=== PATIENT | male | born 1955 | race Caucasian/White ===

== ENCOUNTER 2019-10-31 02:03 | Inpatient (IN) | payer MEDICARE, MEDICAID ==
[2019-10-31 03:04] LABS: #Basophils 0.1 thou/uL (0.0-0.2); #Eosinphils 0.4 thou/uL (0.0-0.7); #Lymphocytes 1.7 thou/uL (1.20-3.40); #Monocytes 0.8 thou/uL (0.11-0.59); #Neutrophils 8.2 thou/uL (1.40-6.50); %Basophils 0.6 % (0.0-1.0); %Eosinophils 3.7 % (0.0-10.0); %Lymphocytes 14.9 % (21.0-51.0); %Neutrophils 73.8 % (42.0-75.0); Hemoglobin 10.5 g/dL (14.0-18.0); Mean Corpuscular HGB CONC 32.6 g/dL (32.0-36.0); Mean Corpuscular Hemoglobin 27.5 pg (27.0-31.0); Mean Corpuscular Volume 84.5 fL (78.0-98.0); Mean Platelet Volume 7.9 fL (7.4-10.4); Platelet Count 288 thou/uL (130-400); RBC Distribution Width 15.6 % (11.5-14.5); Red Blood Cell (RBC) Count 3.81 mill/uL (4.70-6.10); White Blood Cell (WBC) Count 11.1 thou/uL (4.8-10.8)
[2019-10-31 03:26] LABS: ALT (SGPT) 21 U/L (8-55); AST (SGOT) 19 U/L (5-34); Albumin 3.8 g/dL (3.4-4.8); Alkaline Phosphatase 78 U/L (40-110); Anion Gap 14 mmol/L (10-20); BUN (Urea Nitrogen) 30 mg/dL (8.4-25.7); Bilirubin, Total 1.1 mg/dL (0.2-1.2); Calc. Creatinine Clearance 0 mL/min (70-130); Calcium 9.7 mg/dL (7.8-10.44); Carbon Dioxide 18 mmol/L (23-31); Chloride 107 mmol/L (98-107); Estimated GFR-MDRD 24; Globulin 3.2 g/dL (2.4-3.5); Glucose 148 mg/dL (80-115); Potassium 4.2 mmol/L (3.5-5.1); Sodium 135 mmol/L (136-145)
[2019-10-31] MEDS ORDERED: cloNIDine 0.1 MG TAB ONE (03:38)
[2019-10-31] MEDS ORDERED: Aspirin Chewable 81 MG TAB ONE (03:38)
[2019-10-31] MEDS ORDERED: Furosemide 40 MG/4 ML VIAL ONE (03:56)
[2019-10-31] MEDS ORDERED: Ondansetron ODT 4 MG TAB PO PRN (04:16)
[2019-10-31] MEDS ORDERED: Ondansetron PF 4 MG/2 ML Vial IVP PRN (04:16)
[2019-10-31] MEDS ORDERED: HYDROcodone/Acetaminophen 5/325 mg Tablet PO PRN (04:16)
[2019-10-31] MEDS ORDERED: Acetaminophen 650 MG Suppository PR PRN (04:16)
--- NOTE | 2019-10-31 04:20 | PDOC.HHP ---
Hospitalist HPI - History of Present Illness sob History of Present Illness: Case of an 64y/o male with pmhx of bipolar disorder, cad, htn ckd dm and chf who comes to hospital due to sob. apparently patient was on his usual state of health until yesterday when he arrived at [place]. patient states the dyspnea was progressively getting worse for which he was brought here for evaluation. patient denies any chest pain palpitation or diaphoresis. does refers b/l leg edema dorie on orthopnea Hospitalist ROS - Review of Systems All other systems reviewed; all pertinent +/- noted in HPI/Subj - Exam General Appearance: NAD, awake alert Eye: PERRL, anicteric sclera ENT: normocephalic atraumatic, no oropharyngeal lesions Neck: supple, symmetric, no JVD Heart: RRR, no murmur Respiratory: no wheezes, no ronchi, normal chest expansion, rales Gastrointestinal: soft, non-tender, non-distended Extremities: no cyanosis, no clubbing, 2+ LE edema Skin: normal turgor, no lesions, no rashes Neurological: cranial nerve grossly intact, normal sensation to touch, no weakness Musculoskeletal: normal tone, normal strength, no muscle wasting Psychiatric: normal affect, normal behavior, A&O x 3 Hospitalist Results - Labs Result Diagrams: 10/31/19 02:30 10/31/19 02:30 Lab results: WBC 11.1 thou/uL (4.8-10.8) H 10/31/19 02:30 Hgb 10.5 g/dL (14.0-18.0) L 10/31/19 02:30 Hct 32.2 % (42.0-52.0) L 10/31/19 02:30 MCV 84.5 fL (78.0-98.0) 10/31/19 02:30 Plt Count 288 thou/uL (130-400) 10/31/19 02:30 Neutrophils % 73.8 % (42.0-75.0) 10/31/19 02:30 Sodium 135 mmol/L (136-145) L 10/31/19 02:30 Potassium 4.2 mmol/L (3.5-5.1) 10/31/19 02:30 Chloride 107 mmol/L (98-107) 10/31/19 02:30 Carbon Dioxide 18 mmol/L (23-31) L 10/31/19 02:30 BUN 30 mg/dL (8.4-25.7) H 10/31/19 02:30 Creatinine 2.66 mg/dL (0.7-1.3) H 10/31/19 02:30 Glucose 148 mg/dL (80-115) H 10/31/19 02:30 Calcium 9.7 mg/dL (7.8-10.44) 10/31/19 02:30 Total Bilirubin 1.1 mg/dL (0.2-1.2) 10/31/19 02:30 AST 19 U/L (5-34) 10/31/19 02:30 ALT 21 U/L (8-55) 10/31/19 02:30 Alkaline Phosphatase 78 U/L (40-110) 10/31/19 02:30 CK-MB (CK-2) 5.0 ng/mL (0-6.6) 10/31/19 02:30 Troponin I 0.229 ng/mL (< 0.028) H 10/31/19 02:30 B-Natriuretic Peptide 1777.9 pg/mL (0-100) H 10/31/19 02:30 Serum Total Protein 7.0 g/dL (5.8-8.1) 10/31/19 02:30 Albumin 3.8 g/dL (3.4-4.8) 10/31/19 02:30 - EKG Interpretation EKG: no ischemic st changes - Radiology Interpretation Chest x-ray Additional Comment: vascular congestion Hospitalist H&P A/P - Problem (1) Decompensated heart failure Code(s): I50.9 - HEART FAILURE, UNSPECIFIED Status: Acute (2) Hypertensive urgency Code(s): I16.0 - HYPERTENSIVE URGENCY Status: Acute (3) CAD (coronary artery disease) Code(s): I25.10 - ATHSCL HEART DISEASE OF [place] CORONARY ARTERY W/O ANG PCTRS Status: Acute (4) COPD (chronic obstructive pulmonary disease) Status: Acute (5) Diabetes Code(s): E11.9 - TYPE 2 DIABETES MELLITUS WITHOUT COMPLICATIONS Status: Acute (6) Acute kidney injury superimposed on CKD Code(s): N17.9 - ACUTE KIDNEY FAILURE, UNSPECIFIED; N18.9 - CHRONIC KIDNEY DISEASE, UNSPECIFIED Status: Acute (7) Elevated troponin Code(s): R79.89 - OTHER SPECIFIED ABNORMAL FINDINGS OF BLOOD CHEMISTRY Status : Acute - Plan Plan: 64y/o male with the stated pmhx who presents with dyspnea leg swelling orthopnea and PRASAD. elevated trop at 0.2, bnp 1770 cxr consistent with pulmonary edema d chf - lasix 40mg iv q 12 - 02 supplementation - beta xavi - 2d echo -unable to start salome due to kidney injury dionne over ckd - no recent hospitalization to compare - likely secondary to venous stasis in heart failure - starting iv diuresis - monitor creatinine values and u/o htn urgency - arrived w systolic b/p over 200, given lasix and clonidine at the ED, during my evaluation had improved systolic in the 160s - continue home meds, will monitor and adjust as necessary - likely overload component that should improve w lasix cad - continue asa and statin for secondary prevention - continue beta xavi copd - continue home tx - prn due nebs dm - ss and accu checks elevated troponin - no chest pain, likely nstemi type 2 in setting of heart failure - will get serial troponins to evaluate trend -continue cad medication
[2019-10-31] MEDS ORDERED: Dextrose 50% Abboject 50 ML SYRINGE SLOW IVP PRN (04:47)
[2019-10-31] MEDS ORDERED: Dextrose 5% in Water 1,000 ML IV PRN (04:47)
[2019-10-31] MEDS: Furosemide 40 MG/4 ML VIAL SLOW IVP SCH ×2 (05:21→16:28)
[2019-10-31 05:52] VITALS: BMI 34.0
[2019-10-31 06:08] LABS: Troponin I 0.223 ng/mL (< 0.028)
[2019-10-31] MEDS: HumaLOG 300 UNITS/3 ML VIAL SC PRN (06:22)
[2019-10-31] MEDS: Acetaminophen 325 MG TAB PO PRN ×3 (06:22→20:21)
[2019-10-31] MEDS: Ipratropium Bromide 2.5 ml Neb NEB SCH ×4 (07:08→23:37)
[2019-10-31] MEDS: Mometasone 200 MCG/Formoterol 5 MCG 120 PUFF INHALER INH SCH ×2 (07:10→18:46)
[2019-10-31] MEDS ORDERED: glipiZIDE 5 MG TAB PO SCH (08:24)
--- NOTE | 2019-10-31 08:43 | RAD ---
PORTABLE CHEST 1 VIEW: DATE: 10/31/2019. TIME: 2:29 AM. HISTORY: Difficulty breathing. COMPARISON: Comparison is made with the exam of 11/17/2013. FINDINGS/IMPRESSION: The heart size is borderline. There are mild patchy opacities in the lower lung hernandez bilaterally. No pneumothoraces or pleural effusions are seen. POS: IRWIN
[2019-10-31] MEDS ORDERED: NIFEdipine XL 60 MG TAB PO SCH (09:00)
[2019-10-31] MEDS: hydrALAZINE 25 MG TAB PO SCH ×2 (10:17→20:21)
[2019-10-31] MEDS: Tamsulosin HCl 0.4 MG CAP PO SCH (10:18)
[2019-10-31] MEDS: Aspirin Chewable 81 MG TAB PO SCH (10:18)
[2019-10-31] MEDS: Carvedilol 6.25 MG TAB PO SCH ×2 (10:18→20:21)
[2019-10-31] MEDS: Atorvastatin Calcium 10 MG TAB PO SCH (10:18)
[2019-10-31] MEDS: Enoxaparin Sodium 30 MG/0.3 ML SYRINGE SC SCH (10:19)
[2019-10-31 10:29] LABS: Troponin I 0.265 ng/mL (< 0.028)
--- NOTE | 2019-10-31 13:52 | PDOC.HOSPP ---
- Subjective Encounter Date: 10/31/19 Encounter Time: 09:45 Subjective: sob is better, is ambulating in hallway with cardiac rehab no chest pain or palp - Objective Vital Signs & Weight: Vital Signs (12 hours) Temp Pulse Pulse Pulse Resp BP BP 10/31/19 12:31 100 16 10/31/19 12:30 88 20 10/31/19 10:18 83 10/31/19 10:17 83 10/31/19 09:38 82 92 157/98 H 185/76 H 10/31/19 08:55 98.2 F 83 20 10/31/19 08:00 10/31/19 07:11 10/31/19 07:10 80 24 H 10/31/19 07:08 80 16 10/31/19 05:57 10/31/19 04:54 98.5 F 89 20 BP BP Pulse Ox Pulse Ox Pulse Ox 10/31/19 12:31 97 10/31/19 12:30 151/67 H 95 10/31/19 10:18 10/31/19 10:17 10/31/19 09:38 100 98 10/31/19 08:55 157/98 H 100 10/31/19 08:00 100 10/31/19 07:11 98 10/31/19 07:10 98 10/31/19 07:08 98 10/31/19 05:57 99 10/31/19 04:54 140/62 99 Weight Weight 211 lb 3.2 oz Result Diagrams: 10/31/19 02:30 10/31/19 02:30 Additional Labs: Accuchecks 10/31/19 10/31/19 10:34 05:42 POC Glucose 98 269 H Hospitalist ROS - Medication Medications: Active Medications Generic Name Dose Route Start Last Admin Trade Name Freq PRN Reason Stop Dose Admin Acetaminophen 650 mg 10/31/19 04:16 10/31/19 06:22 Tylenol PO 650 mg Q4H PRN Administration Headache/Fever/Mild Pain (1-3) Aspirin 81 mg 10/31/19 09:00 10/31/19 10:18 Aspirin Chewable PO 81 mg DAILY JIN Administration Atorvastatin Calcium 10 mg 10/31/19 09:00 10/31/19 10:18 Lipitor PO 10 mg DAILY JIN Administration Carvedilol 12.5 mg 10/31/19 09:00 10/31/19 10:18 Coreg PO 12.5 mg BID JIN Administration Enoxaparin Sodium 30 mg 10/31/19 09:00 10/31/19 10:19 Lovenox SC 30 mg 0900 JIN Administration Furosemide 40 mg 10/31/19 06:00 10/31/19 05:21 Lasix SLOW IVP 40 mg 0600,1400 JIN Administration Hydralazine HCl 50 mg 10/31/19 09:00 10/31/19 10:17 Apresoline PO 50 mg BID JIN Administration Insulin Human Lispro 0 units 10/31/19 04:47 10/31/19 06:22 Humalog SC 4 unit .MILD SLIDING SCALE PRN Administration Mild Correctional Scale Ipratropium [place] 2.5 ml 10/31/19 07:00 10/31/19 12:31 Atrovent NEB 2.5 ml [id number] JIN Administration Mometasone Furoate/Formoterol Fumar 2 puff 10/31/19 06:30 10/31/19 07:10 Dulera 200 Mcg/5 Mcg Inhaler INH 2 puff BID-RT JIN Administration Nifedipine 60 mg 10/31/19 09:00 10/31/19 10:18 Procardia Xl PO 60 mg DAILY JIN Administration Tamsulosin HCl 0.4 mg 10/31/19 09:00 10/31/19 10:18 Flomax PO 0.4 mg DAILY JIN Administration - Exam General Appearance: awake alert Eye: PERRL, anicteric sclera ENT: no oropharyngeal lesions, moist mucosa Neck: supple, no JVD Heart: RRR, no gallops Respiratory: no wheezes, rales Gastrointestinal: soft, non-tender, non-distended, normal bowel sounds Extremities: no cyanosis, 1+ LE edema Neurological: cranial nerve grossly intact, no focal deficits Hosp A/P (1) Acute exacerbation of CHF (congestive heart failure) Code(s): I50.9 - HEART FAILURE, UNSPECIFIED Status: Acute Qualifiers: Heart failure type: unspecified Qualified Code(s): I50.9 - Heart failure, unspecified (2) Acute kidney injury superimposed on CKD Code(s): N17.9 - ACUTE KIDNEY FAILURE, UNSPECIFIED; N18.9 - CHRONIC KIDNEY DISEASE, UNSPECIFIED Status: Acute (3) CAD (coronary artery disease) Code(s): I25.10 - ATHSCL HEART DISEASE OF [place] CORONARY ARTERY W/O ANG PCTRS Status: Chronic Qualifiers: Coronary Disease-Associated Artery/Lesion type: [place] artery [place] vs. transplanted heart: [place] heart Associated angina: without angina Qualified Code(s): I25.10 - Atherosclerotic heart disease of [place] coronary artery without angina pectoris (4) COPD (chronic obstructive pulmonary disease) Status: Chronic Qualifiers: COPD type: unspecified COPD Qualified Code(s): J44.9 - Chronic obstructive pulmonary disease, unspecified (5) Diabetes Code(s): E11.9 - TYPE 2 DIABETES MELLITUS WITHOUT COMPLICATIONS Status: Chronic Qualifiers: Diabetes mellitus type: type 2 Diabetes mellitus terminal operator insulin use: without fdc use Diabetes mellitus complication status: with kidney complications Diabetes mellitus complication detail: with chronic kidney disease Chronic kidney disease stage: stage 3 (moderate) Qualified Code(s): E11.22 - Type 2 diabetes mellitus with diabetic chronic kidney disease; N18.3 - Chronic kidney disease, stage 3 (moderate) - Plan is on lasix, coreg, procardia, asp, lipitor, glipizide. echo is pending, cardiology consultation, prior echo from 2013 shows severe LVH. hemostable will switch to oral lasix in am he will need help with a place to stay post discharge, likely medication help, [facility] set up locally says he moved from another place (?long term in [place])
--- NOTE | 2019-10-31 18:03 | CON ---
DATE OF CONSULTATION: REASON FOR CONSULTATION: Elevated troponin. PRIMARY DRYWALL TAPER: None. HISTORY OF PRESENT ILLNESS: Mr. Ahuja is an unfortunate 64-year-old gentleman, who states he is currently homeless. He states he was in a halfway in [place], [place]. He has underlying bipolar disorder. He states he was not happy with the person in charge and decided to come closer to his family in [place], although no current immediate family is present. His only brother he states recently . He has no family in the area. He states he began having shortness of breath en route, and the caregiver dropped him off in the emergency room. At this point, he has no other resource. He states he underwent 2 stents placed 1 month ago. The details to his hospitalization are unknown. He denies chest pain pressure. He states he is not feeling much better after relaxing and having a meal. PAST MEDICAL HISTORY: CAD, chronic kidney disease, diabetes mellitus, COPD, marked hypertension, and ischemic cardiomyopathy. ALLERGIES: NONE. REVIEW OF SYSTEMS: Ten-point review of systems is reviewed and as above, otherwise negative. CURRENT HOME MEDICATIONS: Include; 1. Hydralazine. 2. Spiriva. 3. Tamsulosin. 4. Nifedipine. 5. Coreg. 6. Symbicort. 7. Atorvastatin. 8. Metformin. 9. Lisinopril. 10. Lasix. 11. Famotidine. 12. Aspirin. 13. Acetaminophen. PHYSICAL EXAMINATION: GENERAL: He does appear much older stated age. He has very poor dentition with missing teeth present. VITAL SIGNS: Blood pressure 151/67, pulse 88, and respirations 20. NEUROLOGIC: The patient is alert and oriented x3 with no focal neurologic deficits. HEENT: Sclerae without icterus. Mouth has moist mucous membranes with normal pallor. NECK: No JVD. Carotid upstroke brisk. No bruits bilaterally. LUNGS: Clear to auscultation with unlabored respirations. BACK: No scoliosis or kyphosis. CARDIAC: Regular rate and rhythm with normal S1 and S2. No S3 or S4 noted. No significant rubs, murmurs, thrills, or gallops noted throughout the precordium. PMI is not displaced. There is no parasternal heave. ABDOMEN: Soft, nontender, nondistended. No peritoneal signs present. No hepatosplenomegaly. No abnormal striae. EXTREMITIES: 2+ femoral and 2+ dorsalis pedis pulses. No cyanosis, clubbing, or edema. SKIN: No gross abnormalities. IMAGING DATA: Echo Doppler shows LVEF 35% to 40% with akinesis of the inferior wall. PERTINENT LABORATORY DATA: Hemoglobin 10.5. Creatinine 2.6 with a GFR of 24. Peak troponin 0.2. IMPRESSION: 1. Shortness of breath. 2. Coronary artery disease. 3. ? stent placement. 4. Ischemic cardiomyopathy. RECOMMENDATIONS: Mr. Ahuja does have a previous history of cardiomyopathy per the patient. He states he had recent stent placement, although he is not on Plavix. We will add Plavix today and try and obtain records from [facility], where he states he underwent procedure. Otherwise, we will try and stabilize the patient. We will try on the diurese and we will need nephrology assistance. Continue Coreg. GLADIS inhibitor therapy and ARB in addition to Entresto are contraindicated due to elevated creatinine. At this point, based on his comorbidities, we would recommend continued conservative therapy. Job ID: [id number]
[2019-10-31] MEDS: Albuterol Sulfate 1.25 MG/3 ML NEB NEB SCH (18:30)
[2019-10-31] MEDS: Isosorbide Dinitrate 5 MG TAB PO SCH (20:20)
[2019-10-31 21:04] LABS: Bilirubin Negative (Negative); Blood, Urine Trace (Negative); Glucose, Urine (Dipstick) 100 mg/dL (Negative); Ketone, Urine Negative (Negative); Leukocyte Negative (Negative); Nitrite Negative (Negative); Protein, Urine (Dipstick) > or equal to 300 mg/dL (Neg-Trace); Urobilinogen 0.2 mg/dL (Less than 2)
[2019-10-31 21:10] LABS: Clarity Clear (Clear)
[2019-10-31 21:14] LABS: RBC/HPF 0-3 HPF (0-3); WBC/HPF None Seen HPF (0-3)
[2019-10-31 21:15] LABS: Bacteria/HPF Rare-Few HPF (None Seen); Squamous Epithelial 0-3 HPF (0-3)
[2019-10-31 21:16] LABS: Urine Culture Reflex No No
[2019-10-31 21:34] LABS: Creatinine, Urine 90.68 mg/dL (63-166)
[2019-10-31] MEDS ORDERED: Sodium Bicarbonate Tab 325 MG TAB PO SCH (23:00)
--- NOTE | 2019-11-01 00:12 | CON ---
DATE OF CONSULTATION: 10/31/2019 SERVICE: Nephrology. REASON FOR CONSULTATION: Elevated creatinine. REQUESTING PHYSICIAN: Dilip Shepherd MD HISTORY OF PRESENT ILLNESS: A 64-year-old male with known history of bipolar disorder, coronary artery disease, diabetes, and CHF, who presented to the hospital with worsening shortness of breath. The patient normally resides in [facility] area recently relocated down the side yesterday, but soon developed shortness of breath and was subsequently brought to the hospital. The patient also reported bilateral leg edema as well as orthopnea. He was subsequently found to have elevated troponin concerning for non-ST elevation myocardial infarction, hence the patient was admitted. The patient also was found to have elevated creatinine and he reported having chronic kidney disease, necessitating Nephrology consult. The patient reported having a chamber walker in the [facility] area, but he was unable to tell me the name of his regular chamber walker. Moreover, it seems that the patient has relocated over to this side of the city. He also complains of back pain, but denied hematuria, dysuria. The patient reported being out of his medications for several weeks. PAST MEDICAL HISTORY: 1. Coronary artery disease. 2. Chronic kidney disease. 3. Diabetes mellitus. 4. COPD. 5. Hypertension. 6. Ischemic cardiomyopathy. 7. Bipolar disorder. PAST SURGICAL HISTORY: Cardiac catheterization with stent placement. FAMILY HISTORY: Reviewed and noncontributory. The patient denied premature cardiac disease in relatives. SOCIAL HISTORY: The patient is homeless, used to live in a snf in [facility]. He had recently relocated to this area. It is unclear who patient is staying with or what can of long term he has. He is a former smoker that quit about 4 years ago. 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 ALLERGIES: NO KNOWN DRUG ALLERGIES REPORTED. MEDICATIONS: Prior to hospital medications; 1. Albuterol 1.25 mg nebulization b.i.d. 2. Allopurinol 100 mg p.o. daily. 3. Amlodipine 10 mg p.o. daily. 4. Aripiprazole 882 mg intramuscularly every 30 days. 5. Aspirin 81 mg p.o. daily. 6. Bumex 1 mg p.o. b.i.d. 7. Carvedilol 12.5 mg p.o. b.i.d. 8. Plavix 75 mg p.o. daily. 9. Pepcid 20 mg p.o. daily. 10. Finasteride 5 mg p.o. daily. 11. Fish oil 1000 mg p.o. daily. 12. Isosorbide dinitrate 100 mg p.o. t.i.d. 13. Omeprazole 20 mg p.o. daily. 14. Seroquel 400 mg p.o. daily at bedtime. 15. Renvela 800 mg t.i.d. with meals. 16. Flomax 0.4 mg p.o. daily. REVIEW OF SYSTEMS: The patient denied fever, dysuria, hematuria, change in weight. Other components of 12-point review of system performed was negative other than as documented here or in the history of present illness. PHYSICAL EXAMINATION: VITAL SIGNS: Temperature 98.7, pulse 90, respiratory rate 20, SpO2 of 96% on room air, blood pressure is 140/60. GENERAL: Obese male, in no obvious distress. Afebrile. Anicteric. Acyanotic. HEENT: Normocephalic, atraumatic. Poor dental status noted. NECK: No obvious JVD appreciated. CARDIOVASCULAR: Regular rhythm and rate. Normal heart sounds 1 and 2. RESPIRATORY: Fair air entry bilaterally with few crackles especially on the left side posteriorly at the base. No obvious rhonchi or use of accessory muscles appreciated. GASTROINTESTINAL: Obese, soft, nontender, nondistended with normal bowel sounds. MUSCULOSKELETAL: Moderate bilateral leg edema noted. No obvious rash or erythema appreciated. CENTRAL NERVOUS SYSTEM: Conscious and alert, oriented x3. Some memory lapse is noted. PSYCHIATRIC: The patient seems to be making a lot of plans. Affect seems to be normal. DIAGNOSTIC DATA: CBC earlier today showed WBC count of 11.1, hemoglobin of 10.5, MCV of 84.5, platelet of 288. Chemistry earlier today showed sodium 135, potassium 4.2, chloride 107, CO2 18, BUN 30, creatinine 2.66, glucose 148, calcium 9.7, total bilirubin 1.1, AST 19, ALT 21, alkaline phosphatase 78, total protein 7.0, albumin 3.8, globulin 3.2. Cardiac markers showed CK-MB 5.0, troponin 0.229. BNP is 1777.9. Chest x-ray performed on presentation showed a mild patchy opacities in the lower lung hernandez bilaterally, but no pneumothorax or pleural effusion are noted. Echocardiogram performed earlier today showed decreased systolic function with EF of 35-40. Akinetic motion of the inferior wall of the left ventricle noted. E-a flow reversal noted suggestive of diastolic dysfunction. Moderate to mitral regurgitation as well as moderate aortic regurgitation and mild to moderate tricuspid regurgitation noted. ASSESSMENT: 1. Elevated creatinine: It is either acute on chronic kidney dysfunction or chronic dysfunction. Patient is being out of his medication for several weeks into the point to cardiac decompensation with cardiorenal syndrome. 2. Chronic kidney disease of unknown baseline creatinine or EGFR. 3. Bilateral leg edema: Due to congestive heart failure with fluid overload. 4. Acute on chronic systolic and diastolic heart failure. 5. Diabetes. 6. Hypertension: The patient had markedly elevated blood pressure on presentation: This is most likely due to noncompliance. Blood pressure has improved. PLAN: 1. We will continue diuretics for now for acute on chronic systolic and diastolic heart failure. 2. We will get urinalysis as well as urine electrolytes and urine protein creatinine ratio. 3. We will monitor intake and output. 4. We will continue current antihypertensives to get adequate BP control. 5. We will start alkali therapy for metabolic acidosis. 6. We will get repeat BNP in the morning. 7. We will also plan on getting ultrasound of the kidneys to rule out obstructive uropathy as the patient is on Flomax and finasteride. 8. Further treatment to follow depending on hospital course. Many thanks for involving us in the care of this patient. We will follow along with you. Job ID: [id number]
[2019-11-01] MEDS: Acetaminophen 325 MG TAB PO PRN ×3 (00:33→14:01)
[2019-11-01] MEDS: Furosemide 40 MG/4 ML VIAL SLOW IVP SCH (05:24)
[2019-11-01] MEDS: HumaLOG 300 UNITS/3 ML VIAL SC PRN (06:03)
[2019-11-01] MEDS: Albuterol Sulfate 1.25 MG/3 ML NEB NEB SCH (06:58)
[2019-11-01] MEDS: Mometasone 200 MCG/Formoterol 5 MCG 120 PUFF INHALER INH SCH (06:59)
[2019-11-01] MEDS: Ipratropium Bromide 2.5 ml Neb NEB SCH ×2 (06:59→14:53)
[2019-11-01] MEDS ORDERED: glipiZIDE 5 MG TAB PO SCH (07:30)
[2019-11-01] MEDS: Sevelamer Carbonate 800 MG TAB PO SCH ×2 (07:56→13:58)
[2019-11-01] MEDS: Aspirin Chewable 81 MG TAB PO SCH (07:57)
[2019-11-01] MEDS: Carvedilol 6.25 MG TAB PO SCH (07:58)
[2019-11-01] MEDS: Atorvastatin Calcium 10 MG TAB PO SCH (07:58)
[2019-11-01] MEDS: Tamsulosin HCl 0.4 MG CAP PO SCH (08:00)
[2019-11-01] MEDS: hydrALAZINE 25 MG TAB PO SCH (08:00)
[2019-11-01] MEDS: Isosorbide Dinitrate 5 MG TAB PO SCH (08:00)
[2019-11-01] MEDS: Enoxaparin Sodium 30 MG/0.3 ML SYRINGE SC SCH (08:01)
[2019-11-01] MEDS ORDERED: Sodium Bicarbonate Tab 325 MG TAB PO SCH ×2 (09:00→21:00)
[2019-11-01] MEDS ORDERED: Fish Oil 1,000 MG CAP PO SCH (09:00)
[2019-11-01] MEDS ORDERED: Clopidogrel Bisulfate 75 MG TAB PO SCH (09:00)
[2019-11-01] MEDS ORDERED: Finasteride 5 MG TAB PO SCH (09:00)
[2019-11-01] MEDS ORDERED: Allopurinol 100 MG TAB PO SCH (09:00)
[2019-11-01 09:23] LABS: #Eosinphils 0.6 thou/uL (0.0-0.7); #Monocytes 0.6 thou/uL (0.11-0.59); #Neutrophils 5.8 thou/uL (1.40-6.50); %Basophils 0.4 % (0.0-1.0); %Eosinophils 6.4 % (0.0-10.0); %Lymphocytes 22.1 % (21.0-51.0); %Monocytes 6.7 % (0.0-10.0); %Neutrophils 64.3 % (42.0-75.0); Hemoglobin 9.2 g/dL (14.0-18.0); Mean Corpuscular HGB CONC 32.2 g/dL (32.0-36.0); Mean Corpuscular Volume 83.9 fL (78.0-98.0); Mean Platelet Volume 7.3 fL (7.4-10.4); Platelet Count 327 thou/uL (130-400); RBC Distribution Width 15.5 % (11.5-14.5); White Blood Cell (WBC) Count 9.1 thou/uL (4.8-10.8)
[2019-11-01 09:52] LABS: ALT (SGPT) 19 U/L (8-55); AST (SGOT) 18 U/L (5-34); Albumin 3.5 g/dL (3.4-4.8); Alkaline Phosphatase 67 U/L (40-110); Anion Gap 12 mmol/L (10-20); BUN (Urea Nitrogen) 44 mg/dL (8.4-25.7); Bilirubin, Total 0.5 mg/dL (0.2-1.2); Calc. Creatinine Clearance 32 mL/min (70-130); Calcium 8.9 mg/dL (7.8-10.44); Carbon Dioxide 25 mmol/L (23-31); Chloride 100 mmol/L (98-107); Estimated GFR-MDRD 19; Glucose 225 mg/dL (80-115); Potassium 4.5 mmol/L (3.5-5.1); Protein, Total 6.5 g/dL (5.8-8.1); Sodium 132 mmol/L (136-145)
--- NOTE | 2019-11-01 11:50 | ULT ---
Exam: Bilateral renal ultrasound HISTORY: Acute kidney insufficiency. Chronic kidney disease. COMPARISON: None FINDINGS: Right kidney: Renal cortical thinning. No hydronephrosis. Right kidney measurements: 9.2 x 4.2 x 5.2 cm. Left kidney: Renal cortical thinning. No hydronephrosis. 1.6 x 1.2 x 1.8 cm anechoic focus in the low er pole likely representing a cyst. Left kidney measurements 9.4 x 4.7 x 5.1 cm. Urinary bladder: Normal mucosa. Prevoid volume is 170 mL. IMPRESSION: No hydronephrosis.
--- NOTE | 2019-11-01 14:13 | PRG ---
DATE OF SERVICE: 11/01/2019 SERVICE: Nephrology. SUBJECTIVE: A 64-year-old male seen in followup for HAROLDO on CKD. The patient was admitted due to worsening shortness of breath and leg swelling, and was started on diuretics. Overnight, creatinine has increased further. The patient reported improvement in generalized condition and neck swelling. Denied nausea, vomiting, fever, chest pain, or cough. OBJECTIVE: VITAL SIGNS: Temperature 98.9, pulse 87, respiratory rate 16, SpO2 of 98% on room air, blood pressure is 138/64. I's and O's in the last 24 hours showed total intake of 700 with total output of 950. This seems to be inconclusive. GENERAL: Comfortable male patient, in no obvious distress. Afebrile. Anicteric. Acyanotic. HEENT: Normocephalic, atraumatic. Oral mucosa is moist. NECK: Supple with no JVD. CARDIOVASCULAR: Regular rhythm and rate. Normal heart sounds 1 and 2. RESPIRATORY: Fair air entry bilaterally with few bibasilar crackles or transmitted breath sounds. No obvious rhonchi or use of accessory muscles appreciated. GI: Obese, soft, nontender, nondistended with normal bowel sounds. EXTREMITIES: Mild bilateral leg edema noted. No erythema appreciated. CALL CENTER OPERATIONS MANAGER: Conscious and alert and oriented x3 with appropriate mental status. DIAGNOSTIC DATA: CMP showed sodium 132, potassium 4.5, chloride 100, CO2 of 25, BUN 44, creatinine 3.3, glucose 225, calcium 8.9, magnesium 2.0, total bilirubin 0.5, AST 18, ALT 19, alkaline phosphatase 67, total protein 6.5, albumin 3.5. CBC showed WBC count of 9.1, hemoglobin of 9.2, platelet of 327. Urinalysis yesterday showed yellow clear urine with pH of 5.0, specific gravity of 1.020, greater than or equal to 300 mg/dL of protein, negative ketone, trace blood, negative nitrite, bilirubin, and leukocyte esterase. Microscopy showed 0 to 3 RBC and none WBCs seen. Random urine protein was 228 mg/dL while urine creatinine was 90.68 and urine sodium 39 and urine urea nitrogen 380 with fractional excretion of urea of 36. ASSESSMENT: 1. Acute kidney injury: This is due to hemodynamic factors related to intravascular contraction as well as from aggressive diuretic therapy. Creatinine has gone up from 2.66 on admission to 3.30. BUN is also up from 30 on admission to 44. 2. Chronic kidney disease of unclear stage. Seems more like CKD stage 4. The patient already is on Renvela. 3. Hyponatremia: The patient had mild hyponatremia yesterday with 135 and currently 132. Most likely due to cardiac decompensation. 4. Acute on chronic systolic and diastolic heart failure. 5. Moderate mitral and aortic regurgitation. 6. Chronic bilateral leg edema: Most likely due to valvular heart disease as well as diastolic heart disease. Improved with diuretics. PLAN: 1. We will discontinue diuretics for now. 2. We will get a renal ultrasound to rule out obstruction as the patient is on BPH medication prior to presentation. 3. We will continue antihypertensives and adjust dose to get adequate BP control. 4. We will recheck renal function test in the morning. 5. Further treatment to follow depending on hospital course. Job ID: [id number]
--- NOTE | 2019-11-01 15:31 | PDOC.HOSPP ---
- Subjective Encounter Date: 11/01/19 Encounter Time: 10:00 Subjective: no sob or palp is amb in hallway responds well to verbal questions, ate his breakfast. - Objective Vital Signs & Weight: Vital Signs (12 hours) Temp Pulse Pulse Pulse Resp BP BP 11/01/19 10:39 87 89 115/57 L 11/01/19 08:00 87 138/64 11/01/19 07:58 138/64 11/01/19 07:50 98.9 F 87 16 11/01/19 06:58 87 16 BP BP Pulse Ox Pulse Ox Pulse Ox 11/01/19 10:39 124/56 L 97 97 11/01/19 08:00 98 11/01/19 07:58 11/01/19 07:50 138/64 98 11/01/19 06:58 97 Weight Weight 212 lb 3.2 oz I&O: 10/31/19 11/01/19 11/02/19 06:59 06:59 06:59 Intake Total 700 Output Total 950 Balance -250 Result Diagrams: 11/01/19 09:11 11/01/19 09:11 Additional Labs: Accuchecks 11/01/19 11/01/19 10/31/19 11:17 05:47 20:47 POC Glucose 130 H 154 H 211 H 10/31/19 16:13 POC Glucose 157 H Hospitalist ROS - Medication Medications: Active Medications Generic Name Dose Route Start Last Admin Trade Name Freq PRN Reason Stop Dose Admin Acetaminophen 650 mg 10/31/19 04:16 11/01/19 14:01 Tylenol PO 650 mg Q4H PRN Administration Headache/Fever/Mild Pain (1-3) Albuterol Sulfate 1.25 mg 10/31/19 18:30 11/01/19 06:58 Albuterol Sulfate NEB 1.25 mg BID-RT JIN Administration Allopurinol 100 mg 11/01/19 09:00 11/01/19 07:57 Zyloprim PO 100 mg DAILY JIN Administration Aspirin 81 mg 10/31/19 09:00 11/01/19 07:57 Aspirin Chewable PO 81 mg DAILY JIN Administration Atorvastatin Calcium 10 mg 10/31/19 09:00 11/01/19 07:58 Lipitor PO 10 mg DAILY JIN Administration Carvedilol 12.5 mg 10/31/19 09:00 11/01/19 07:58 Coreg PO 12.5 mg BID JNI Administration Clopidogrel Bisulfate 75 mg 11/01/19 09:00 11/01/19 07:58 Plavix PO 75 mg DAILY [facility] Administration Enoxaparin Sodium 30 mg 10/31/19 09:00 11/01/19 08:01 Lovenox SC Not Given 0900 JIN Finasteride 5 mg 11/01/19 09:00 11/01/19 08:02 Proscar PO Not Given DAILY [facility] Fish Oil 1,000 mg 11/01/19 09:00 11/01/19 07:59 Fish Oil PO 1,000 mg DAILY JIN Administration Glipizide 5 mg 11/01/19 07:30 11/01/19 07:56 Glucotrol PO 5 mg DAILY-AC [facility] Administration Hydralazine HCl 50 mg 10/31/19 09:00 11/01/19 08:00 Apresoline PO 50 mg BID [facility] Administration Insulin Human Lispro 0 units 10/31/19 04:47 11/01/19 06:03 Humalog SC 2 unit .MILD SLIDING SCALE PRN Administration Mild Correctional Scale Ipratropium [place] 2.5 ml 10/31/19 07:00 11/01/19 14:53 Atrovent NEB Not Given [id number] [facility] Isosorbide Dinitrate 10 mg 10/31/19 21:00 11/01/19 08:00 Isordil PO 10 mg TID [facility] Administration Mometasone Furoate/Formoterol Fumar 2 puff 10/31/19 06:30 11/01/19 06:59 Dulera 200 Mcg/5 Mcg Inhaler INH 2 puff BID-RT [facility] Administration Pantoprazole Sodium 40 mg 11/01/19 09:00 11/01/19 08:04 Protonix PO Not Given DAILY [facility] Quetiapine Fumarate 400 mg 10/31/19 21:00 10/31/19 20:23 Seroquel PO Not Given HS [facility] Sevelamer Carbonate 800 mg 11/01/19 08:00 11/01/19 13:58 Renvela PO 800 mg TID-WM [facility] Administration Tamsulosin HCl 0.4 mg 10/31/19 09:00 11/01/19 08:00 Flomax PO Not Given DAILY JIN - Exam General Appearance: awake alert Eye: PERRL, anicteric sclera ENT: no oropharyngeal lesions, moist mucosa Neck: supple, no JVD Heart: RRR, no murmur Respiratory: no wheezes, no rales Gastrointestinal: soft, non-tender, non-distended, normal bowel sounds Extremities: no cyanosis, no edema Neurological: cranial nerve grossly intact, no focal deficits Hosp A/P (1) Acute exacerbation of CHF (congestive heart failure) Code(s): I50.9 - HEART FAILURE, UNSPECIFIED Status: Acute Qualifiers: Heart failure type: combined systolic and diastolic Qualified Code(s): I50.43 - Acute on chronic combined systolic (congestive) and diastolic ( congestive) heart failure (2) Acute kidney injury superimposed on CKD Code(s): N17.9 - ACUTE KIDNEY FAILURE, UNSPECIFIED; N18.9 - CHRONIC KIDNEY DISEASE, UNSPECIFIED Status: Resolved (3) CAD (coronary artery disease) Code(s): I25.10 - ATHSCL HEART DISEASE OF [place] CORONARY ARTERY W/O ANG PCTRS Status: Chronic Qualifiers: Coronary Disease-Associated Artery/Lesion type: [place] artery [place] vs. transplanted heart: [place] heart Associated angina: without angina Qualified Code(s): I25.10 - Atherosclerotic heart disease of [place] coronary artery without angina pectoris (4) COPD (chronic obstructive pulmonary disease) Status: Chronic Qualifiers: COPD type: unspecified COPD Qualified Code(s): J44.9 - Chronic obstructive pulmonary disease, unspecified (5) Diabetes Code(s): E11.9 - TYPE 2 DIABETES MELLITUS WITHOUT COMPLICATIONS Status: Chronic Qualifiers: Diabetes mellitus type: type 2 Diabetes mellitus fdc insulin use: without director long term care use Diabetes mellitus complication status: with kidney complications Diabetes mellitus complication detail: with chronic kidney disease Chronic kidney disease stage: stage 3 (moderate) Qualified Code(s): E11.22 - Type 2 diabetes mellitus with diabetic chronic kidney disease; N18.3 - Chronic kidney disease, stage 3 (moderate) (6) Schizoaffective disorder Code(s): F25.9 - SCHIZOAFFECTIVE DISORDER, UNSPECIFIED Status: Chronic Qualifiers: Schizoaffective disorder type: unspecified Qualified Code(s): F25.9 - Schizoaffective disorder, unspecified - Plan is on lasix, coreg, procardia, asp, lipitor, glipizide. echo shows ef of 35% hemostable meds are being optimized he will need help with a place to stay post discharge, likely medication help, [facility] set up locally says he moved from another place (?prison in [place]) he has signed out against advice to find a place to stay, likely at the [place] , he is also trying to get into [facility] service here locally I will be happy to fax his medications once we know his pharmacy.
[2019-11-01 16:50] VITALS: BP 134/62; TEMP 98.7
--- NOTE | 2019-11-01 17:13 | PRG ---
DATE OF SERVICE: 11/01/2019 SUBJECTIVE: Mr. Ahuja is stable. No current complaints. OBJECTIVE: VITAL SIGNS: Blood pressure 124/56, pulse 87, temperature afebrile. LUNGS: Clear to auscultation. HEART: Irregularly irregular. ABDOMEN: Soft, nontender, and nondistended. EXTREMITIES: No edema. PERTINENT LABORATORY DATA: Hemoglobin 9.2. Creatinine 3.3. IMPRESSION: 1. Coronary artery disease. 2. Cardiomyopathy, likely ischemic. 3. Atrial fibrillation, likely paroxysmal. 4. Bipolar disorder. RECOMMENDATIONS: Mr. Ahuja likely has paroxysmal atrial fibrillation. I am unsure about his compliance with medical therapy. We would not feel comfortable proceeding with Coumadin. He states he is okay with taking Xarelto. He is rate controlled without symptoms. We would add Xarelto 20 mg p.o. q.a.m. There are no current symptoms suggesting angina. We will discontinue aspirin and continue carvedilol and Plavix. Change Lasix to p.o. and continue Isordil. Otherwise, I have no recommendations. Placement will be needed. Please re-consult if any further questions arise. Job ID: [id number]
[2019-11-01] MEDS ORDERED: Rivaroxaban 15 MG TAB PO SCH (21:00)
--- NOTE | 2019-11-02 04:52 | PQF ---
[employer] Crystal Reports Winform Viewer DAMIAN BEDOYA VINAYA KUMAR MD [id number] [address] [place] [address] [id number] CLINICAL DOCUMENTATION CLARIFICATION FORM: POST DISCHARGE Addendum to original discharge summary date: ____ Late entry note date: __ DATE: 11/02/19 ATTN: Dilip Shepherd Please exercise your independent, professional judgment in responding to the clarification form. Clinical indicators are provided on the bottom of this form for your review Can you please further clarify if NSTEMI type 2 is ruled in or ruled out? type 2 NSTEMI [ ] Ruled in diagnosis [ ] Continue to treat [ ] Resolved [ x ] Ruled out diagnosis [ ] Cannot rule out diagnosis [ ] Other diagnosis please specify [ ] Unable to determine For continuity of documentation, please document condition throughout progress notes and discharge summary. Thank You. CLINICAL INDICATORS - SIGNS / SYMPTOMS / LABS ED Provider pg.3- Hypertensive emergency, NSTEMI, Pulmonary edema H and P pg.2- BNP 1777.9H H and P pg.2- Chest X ray: vascular congestion H and P pg.4- elevated troponin, likely nstemi type 2 in the setting of heart failure Consult Dr. Coreas pg.1- found to have elevated troponin concerning for Non-ST elevation myocardial infarction Laboratory- Troponin 0.229Hm 0.223H, 0.265H EKG 10/[address] segment normal, T wave normal Vital Signs 10/30: Temp=98.5 Ajcne=617 KW=538/67 Respi=24 Labs CK-MB: 10/30=5.0 RISK FACTORS CAD- H and P pg.1 HTN- H and P pg.1 CKD- H and P pg.1 CHF- H and P pg.1 64 years old- H and P pg.1 Ischemic cardiomyopathy- Cardiology Consult pg.1 COPD- Cardiology Consult pg.1 DM ED Notes 10/30 PN 10/31 Mitral and aortic regurgitation Paroxysmal Afib PN 10/31 Consult 10/30 Obesity TREATMENTS Chest X ray 10/30 Echocardiogram 10/[address] Orellana Troponin Monitoring- Laboratory Aspirin 81mg PO- MAR Furosemide 40 mg IV- MAR IV Fluids- JUN EKG ED Notes 10/30 (This form is maintained as a part of the permanent medical record) 2014 [email or web address]. All Rights Reserved [email or web address]
--- NOTE | 2019-11-02 17:47 | DIS ---
DATE OF ADMISSION: 10/31/2019 DATE OF DISCHARGE: 11/01/2019 [id number] DISPOSITION: The patient signed out against medical advice. PRIMARY DISCHARGE DIAGNOSES: Acute on chronic congestive heart failure exacerbation with systolic dysfunction with ejection fraction of 35%, class C; acute kidney injury on top of chronic kidney disease, stage 3 likely; coronary artery disease ; chronic obstructive pulmonary disease; diabetes mellitus, type 2; schizoaffective disorder. PROCEDURES DONE DURING HOSPITALIZATION: Chest x-ray done showed cardiomegaly with pulmonary vascular congestion. Echo with 2D Doppler done showed ejection fraction of 35% to 40%. Inferior wall was akinetic. There was diastolic dysfunction, moderate mitral regurgitation, and moderate aortic regurgitation. Ultrasound of the kidneys showed no hydronephrosis. He had a white count of 9, H and H of 9 and 28, platelet count 327, MCV 83. Discharge BUN and creatinine are 44 and 3.3. Serum bicarb was 25. Albumin 3.5. Admitting BUN and creatinine were 30 and 2.6. BNP 1777. DISCHARGE MEDICATIONS: Please note the patient did not inform us of his pharmacy prior to signing out against advice. I have informed the staff on telemetry to fax the following medications if he calls us with the name of his pharmacy. He will need, 1. Bumex 1 mg at 9 a.m. and 2 p.m. 2. Lipitor 10 mg daily. 3. Aspirin 81 mg daily. 4. Allopurinol 100 mg daily. 5. Aripiprazole 882 mg intramuscular once every 30 days for schizophrenia. 6. Albuterol nebulizer twice daily. 7. Carvedilol 12.5 mg twice daily. 8. Plavix 75 mg daily. 9. Proscar 5 mg daily. 10. Fish oil 1000 mg daily. 11. Glipizide 5 mg daily. 12. Hydralazine 50 mg twice daily. 13. Isordil 10 mg twice daily. 14. Omeprazole 20 mg daily. 15. Seroquel 400 mg p.o. at bedtime. 16. Sevelamer 800 mg 3 times daily. 17. Sodium bicarbonate 650 mg twice daily. 18. Flomax 0.4 mg daily. ALLERGIES: NO KNOWN DRUG ALLERGIES. DISCHARGE PLAN: Please note, the patient signed out against medical advice and we are not sure who his primary care physician will be in the local area. He moved from [facility]. He is trying to establish with [facility] here and a primary care physician locally as well. INPATIENT CONSULTATIONS: Dr. Orellana for Cardiology and Dr. Coreas for Nephrology BRIEF COURSE DURING HOSPITALIZATION: The patient initially came in with complaints of shortness of breath. This got progressively worse from last 24 hours and the patient was admitted for CHF exacerbation. He had elevated BUN and creatinine as well as likely might have underlying CKD. He is new to the hospital. He was living in [facility]. He also has underlying schizoaffective disorder. The patient' s echo revealed ejection fraction of 35% to 40%. Ultrasound of the kidneys did not reveal any hydronephrosis. The patient was gently diuresed during his stay here. He has had consultation with Dr. Orellana for Cardiology and Dr. Coreas for Nephrology. On 11/02/2019, the patient suddenly left against medical advice saying that he has to find a place at the local [place] before it closes at 4 p.m. and also to seek [facility] local services. He was clearly aware that his renal function is getting worse along with cardiac complications as well as his medications were being optimized. He is a high risk for readmission. Please see a [id number] documentation for the day of discharge on [place]. Job ID: [id number] [facility]
== END 2019-11-01 15:05 | disposition left against medical advice (07) | DRG 291 ==
LOC: ERS 02:03 → 2NO 04:10 → OBSVTOIN 04:10
PROVIDERS: ADMIT Internal Medicine; ATTEND Internal Medicine
DX: I13.0 Hypertensive heart and chronic kidney disease with heart failure and stage 1 through stage 4 chronic kidney disease, or unspecified chronic kidney disease (principal); I50.43 Acute on chronic combined systolic (congestive) and diastolic (congestive) heart failure; N17.9 Acute kidney failure, unspecified; N18.4 Chronic kidney disease, stage 4 (severe); E87.1 Hypo-osmolality and hyponatremia; F31.9 Bipolar disorder, unspecified; J43.9 Emphysema, unspecified; E11.22 Type 2 diabetes mellitus with diabetic chronic kidney disease; I25.10 Atherosclerotic heart disease of native coronary artery without angina pectoris; I16.0 Hypertensive urgency; I48.0 Paroxysmal atrial fibrillation; I25.5 Ischemic cardiomyopathy; F25.9 Schizoaffective disorder, unspecified; I25.2 Old myocardial infarction; Z95.5 Presence of coronary angioplasty implant and graft; Z79.899 Other long term (current) drug therapy; Z79.51 Long term (current) use of inhaled steroids; Z79.82 Long term (current) use of aspirin; Z91.14 Patient's other noncompliance with medication regimen; Z53.29 Procedure and treatment not carried out because of patient's decision for other reasons
CPT/HCPCS: 36415; 36416; 71045; 76770; 80053; 81001; 82553; 82570; 83735; 83880; 84156; 84300; 84443; 84484; 84540; 85025; 93005; 93306; 93798; 94640; 96374; J1650; J1940; J7620

== ENCOUNTER 2019-11-04 23:22 | Inpatient (IN) | payer MEDICARE, MEDICAID ==
[2019-11-05] MEDS ORDERED: Ketorolac Tromethamine 30 MG/ML VIAL ONE (00:09)
[2019-11-05 00:35] LABS: #Eosinphils 0.1 thou/uL (0.0-0.7); #Lymphocytes 1.7 thou/uL (1.20-3.40); #Monocytes 0.6 thou/uL (0.11-0.59); %Basophils 0.4 % (0.0-1.0); %Eosinophils 1.4 % (0.0-10.0); %Lymphocytes 16.2 % (21.0-51.0); %Monocytes 5.6 % (0.0-10.0); %Neutrophils 76.3 % (42.0-75.0); Mean Corpuscular HGB CONC 32.9 g/dL (32.0-36.0); Mean Corpuscular Hemoglobin 27.8 pg (27.0-31.0); Mean Corpuscular Volume 84.6 fL (78.0-98.0); Mean Platelet Volume 7.1 fL (7.4-10.4); Platelet Count 305 thou/uL (130-400); RBC Distribution Width 15.7 % (11.5-14.5); Red Blood Cell (RBC) Count 3.23 mill/uL (4.70-6.10); White Blood Cell (WBC) Count 10.5 thou/uL (4.8-10.8)
[2019-11-05 00:44] LABS: ALT (SGPT) 20 U/L (8-55); AST (SGOT) 17 U/L (5-34); Albumin 3.6 g/dL (3.4-4.8); Alkaline Phosphatase 72 U/L (40-110); Anion Gap 12 mmol/L (10-20); BUN (Urea Nitrogen) 34 mg/dL (8.4-25.7); Calc. Creatinine Clearance 0 mL/min (70-130); Calcium 9.3 mg/dL (7.8-10.44); Carbon Dioxide 22 mmol/L (23-31); Chloride 106 mmol/L (98-107); Estimated GFR-MDRD 24; Globulin 3.1 g/dL (2.4-3.5); Glucose 131 mg/dL (80-115); Potassium 4.3 mmol/L (3.5-5.1); Protein, Total 6.7 g/dL (5.8-8.1); Sodium 136 mmol/L (136-145)
[2019-11-05] MEDS ORDERED: cloNIDine 0.1 MG TAB ONE (00:56)
[2019-11-05] MEDS ORDERED: Furosemide 40 MG/4 ML VIAL ONE (01:11)
[2019-11-05] MEDS ORDERED: Nitroglycerin 2% Ointment 1 INCH/1 GM Packet ONE (01:11)
[2019-11-05 01:21] LABS: CKMB 3.5 ng/mL (0-6.6)
[2019-11-05] MEDS ORDERED: Acetaminophen 500 MG TAB ONE (01:41)
[2019-11-05] MEDS ORDERED: Dextrose 5% in Water 1,000 ML IV PRN (03:12)
[2019-11-05] MEDS ORDERED: Dextrose 50% Abboject 50 ML SYRINGE SLOW IVP PRN (03:12)
--- NOTE | 2019-11-05 03:42 | HP ---
REASON FOR ADMISSION: Shortness of breath. HISTORY OF PRESENT ILLNESS: This is a 64-year-old male patient, who was in our hospital and left against medical advice approximately three days ago, although the hospitalist, who was seeing him, did call the Pharmacy and sent a prescription for his cardiac medications. The patient did not take any of those medication. He comes back today reporting recurrence of his shortness of breath and neck pain. The patient was admitted previously for CHF exacerbation. The patient denies any chest pain. No fevers. No chills. No cough. No sputum production. I did review his records and the patient was admitted on October 30 with shortness of breath, diagnosed with acute on chronic congestive heart failure exacerbation. His EF was found to be 35%. He was noted to have stage 3 kidney disease. His ultrasound of the kidneys did not show any hydronephrosis. He was gently diuresed, Cardiology was consulted, at some point, the patient decided to leave AMA. The patient returns and tells me that he is short of breath and does not want to . PAST MEDICAL HISTORY: 1. Bipolar disorder. 2. Coronary artery disease. 3. High blood pressure. 4. Chronic kidney disease, stage 3. 5. Diabetes type 2. 6. CHF. SOCIAL HISTORY: Does not smoke. Does not drink alcohol. FAMILY HISTORY: Negative for heart disease. REVIEW OF SYSTEMS: All systems reviewed except the above-mentioned shortness of breath, found to be negative. PHYSICAL EXAMINATION: GENERAL: He is awake, alert, and oriented, does not appear in distress. VITAL SIGNS: His blood pressure is 190/108, heart rate of 110, saturating 94% room air, and temperature is 98.9. HEENT: Head is nontraumatic and normocephalic. Pupils are equal, reactive. Extraocular movements are intact. Nonicteric sclerae. Well injected conjunctivae. Oral mucosa normal. Nasal mucosa normal. NECK: Supple. No adenopathy. No murmur. Thyroid is not palpable. Trachea is midline. No supraclavicular adenopathy. HEART: S1 and S2. Regular. No murmur. No gallop. No friction rubs. No displacement of PMI. LUNGS: Decreased air entry bilaterally. Inspiratory crackles bilateral bases. ABDOMEN: Bowel sounds are positive. Nontender abdomen. No hepatomegaly. EXTREMITIES: No lower extremity edema. No cyanosis. NEUROLOGIC: Cranial nerves 2 through 12 within normal limits. Normal motor function. Normal sensory function. Normal reflexes. LABORATORY DATA: Blood work shows WBC of 10.5, hemoglobin 9, which is around his baseline, and platelets of 305. Sodium 136, potassium 4.3, and creatinine of 2.73, previous creatinine 3.3. Troponin of 0.610, previous troponin 0.265 and BNP of 3097, previous BNP was 1777. Chest x-ray shows no acute disease, no major changes compared to previous chest x-ray done on the 30 of October. EKG shows sinus tachycardia, nonspecific interventricular conduction delay. ASSESSMENT AND PLAN: This is a 64-year-old male patient, who is presenting with uncontrolled blood pressure, also worsening of his congestive heart failure secondary to noncompliance with medication. He was in our hospital with similar presentation and left against medical advise. He does have history of psychiatric illness. Cardiac. The patient will be admitted to telemetry under observation. We will continue cycling his cardiac enzymes and we will diurese him with IV Lasix. We will provide him with blood pressure control by restarting his home medications, also adding hydralazine IV on as needed basis. Renal system, electrolytes. The patient does have chronic kidney disease. We will continue to monitor his kidney function since he will be diuresed. In regard to his diabetes, he will be on insulin sliding scale. For deep venous thrombosis prophylaxis, he will be on heparin subcutaneously. I am awaiting for his med rec to be done, so I could reconcile his medications. Most likely, we will resume his home medications. I did discuss with him his code status and he wishes to be a full code. Job ID: [id number]
[2019-11-05 04:35] LABS: #Eosinphils 0.2 thou/uL (0.0-0.7); #Lymphocytes 2.2 thou/uL (1.20-3.40); #Monocytes 0.6 thou/uL (0.11-0.59); #Neutrophils 6.3 thou/uL (1.40-6.50); %Basophils 0.4 % (0.0-1.0); %Eosinophils 2.6 % (0.0-10.0); %Lymphocytes 23.3 % (21.0-51.0); %Monocytes 6.7 % (0.0-10.0); Hemoglobin 8.8 g/dL (14.0-18.0); Mean Corpuscular HGB CONC 31.4 g/dL (32.0-36.0); Mean Corpuscular Volume 85.9 fL (78.0-98.0); Mean Platelet Volume 7.4 fL (7.4-10.4); Platelet Count 288 thou/uL (130-400); RBC Distribution Width 15.7 % (11.5-14.5); Red Blood Cell (RBC) Count 3.24 mill/uL (4.70-6.10); White Blood Cell (WBC) Count 9.4 thou/uL (4.8-10.8)
[2019-11-05] MEDS: hydrALAZINE 20 MG/ML VIAL SLOW IVP PRN ×2 (04:53→23:55)
[2019-11-05 05:00] LABS: Anion Gap 16 mmol/L (10-20); BUN (Urea Nitrogen) 36 mg/dL (8.4-25.7); Calc. Creatinine Clearance 0 mL/min (70-130); Calcium 9.2 mg/dL (7.8-10.44); Carbon Dioxide 18 mmol/L (23-31); Chloride 104 mmol/L (98-107); Estimated GFR-MDRD 23; Glucose 134 mg/dL (80-115); Potassium 4.1 mmol/L (3.5-5.1); Sodium 134 mmol/L (136-145)
[2019-11-05 05:03] LABS: Troponin I 0.691 ng/mL (< 0.028)
[2019-11-05] MEDS ORDERED: ARIPIPRAZOLE LAUROXIL 882 MG IM SCH (05:15)
[2019-11-05 06:45] LABS: Critical Call Chem Troponin I RESULT DECREASING; Troponin I 0.519 ng/mL (< 0.028)
--- NOTE | 2019-11-05 08:07 | RAD ---
PORTABLE CHEST: Date: 11/04/2019 PROVIDED CLINICAL HISTORY: Dyspnea. FINDINGS: Comparison with 10/31/2019 Cardiac and mediastinal silhouette is unchanged in appearance. Appearance of the lung parenchyma is n ot significantly changed with respect to prior. There is no pleural fluid or pneumothorax apparent. IMPRESSION: Stable radiographic appearance of the chest without definite evidence for an acute cardiopulmonary pr ocess. POS: HARRIET
[2019-11-05] MEDS: Atorvastatin Calcium 10 MG TAB PO SCH (08:29)
[2019-11-05] MEDS: Sodium Bicarbonate Tab 325 MG TAB PO SCH ×2 (08:29→20:29)
[2019-11-05] MEDS: hydrALAZINE 25 MG TAB PO SCH ×2 (08:29→20:30)
[2019-11-05] MEDS: Fish Oil 1,000 MG CAP PO SCH (08:29)
[2019-11-05] MEDS: Clopidogrel Bisulfate 75 MG TAB PO SCH (08:29)
[2019-11-05] MEDS: Isosorbide Dinitrate 20 MG TAB PO SCH ×2 (08:29→20:30)
[2019-11-05] MEDS: glipiZIDE 5 MG TAB PO SCH (08:29)
[2019-11-05] MEDS: Sevelamer Carbonate 800 MG TAB PO SCH ×3 (08:29→17:57)
[2019-11-05] MEDS: Aspirin Chewable 81 MG TAB PO SCH (08:29)
[2019-11-05] MEDS: Allopurinol 100 MG TAB PO SCH (08:30)
[2019-11-05] MEDS: Tamsulosin HCl 0.4 MG CAP PO SCH (08:30)
[2019-11-05] MEDS: Heparin 5,000 UNITS/ML VIAL SC SCH ×3 (08:30→20:29)
[2019-11-05] MEDS: Acetaminophen 325 MG TAB PO PRN ×3 (08:30→20:30)
[2019-11-05] MEDS: Finasteride 5 MG TAB PO SCH (08:30)
[2019-11-05] MEDS: Carvedilol 6.25 MG TAB PO SCH ×2 (08:30→20:31)
[2019-11-05] MEDS: Furosemide 40 MG/4 ML VIAL SLOW IVP SCH ×2 (08:30→20:31)
[2019-11-05] MEDS ORDERED: Albuterol Sulfate 1.25 MG/3 ML NEB NEB SCH (09:00)
[2019-11-05] MEDS ORDERED: Bumetanide 1 MG TAB PO SCH (09:00)
[2019-11-05] MEDS: Albuterol Sulfate 1.25 MG/3 ML NEB NEB SCH (19:09)
[2019-11-06] MEDS: Albuterol Sulfate 1.25 MG/3 ML NEB NEB SCH ×2 (07:17→18:56)
[2019-11-06] MEDS: Carvedilol 6.25 MG TAB PO SCH ×2 (08:05→22:08)
[2019-11-06] MEDS: Sevelamer Carbonate 800 MG TAB PO SCH ×3 (08:05→16:35)
[2019-11-06] MEDS: Atorvastatin Calcium 10 MG TAB PO SCH (08:05)
[2019-11-06] MEDS: Allopurinol 100 MG TAB PO SCH (08:05)
[2019-11-06] MEDS: Sodium Bicarbonate Tab 325 MG TAB PO SCH ×2 (08:05→22:08)
[2019-11-06] MEDS: Clopidogrel Bisulfate 75 MG TAB PO SCH (08:05)
[2019-11-06] MEDS: Isosorbide Dinitrate 20 MG TAB PO SCH ×2 (08:06→22:09)
[2019-11-06] MEDS: glipiZIDE 5 MG TAB PO SCH (08:06)
[2019-11-06] MEDS: hydrALAZINE 25 MG TAB PO SCH ×2 (08:06→22:09)
[2019-11-06] MEDS: Tamsulosin HCl 0.4 MG CAP PO SCH (08:06)
[2019-11-06] MEDS: Finasteride 5 MG TAB PO SCH (08:06)
[2019-11-06] MEDS: Fish Oil 1,000 MG CAP PO SCH (08:06)
[2019-11-06] MEDS: Furosemide 40 MG/4 ML VIAL SLOW IVP SCH ×2 (08:06→22:08)
[2019-11-06] MEDS: Heparin 5,000 UNITS/ML VIAL SC SCH ×3 (08:06→22:08)
[2019-11-06] MEDS: Aspirin Chewable 81 MG TAB PO SCH (08:06)
[2019-11-06] MEDS: Acetaminophen 325 MG TAB PO PRN ×2 (08:07→23:34)
[2019-11-06] MEDS: HumaLOG 300 UNITS/3 ML VIAL SC PRN (12:28)
--- NOTE | 2019-11-06 20:18 | PDOC.HOSPP ---
- Subjective Encounter Date: 11/06/19 Encounter Time: 09:00 Subjective: no overnight events. this morning, feeling well and has no complaints with exception of dyspnea on exertion that is improving. Continues to have delusions of grandeur and visual hallucinations. Homeless, medical care limited by psychiatric comorbidities. Cannot care for self. Pending [facility] evaluation - Objective Vital Signs & Weight: Vital Signs (12 hours) Temp Pulse Resp BP BP Pulse Ox 11/06/19 18:56 79 16 11/06/19 16:00 78 159/70 H 11/06/19 11:43 97.4 F L 82 18 172/77 H 94 L Weight Weight 217 lb 6.4 oz I&O: 11/05/19 11/06/19 11/07/19 06:59 06:59 06:59 Intake Total 100 120 650 Output Total 0 550 1200 Balance 100 -430 -550 Result Diagrams: 11/05/19 04:10 11/05/19 04:10 Additional Labs: Accuchecks 11/06/19 11/06/19 11/06/19 16:16 10:20 05:51 POC Glucose 84 284 H 138 H 11/05/19 20:44 POC Glucose 167 H Hospitalist ROS - Review of Systems Constitutional: denies: fever, chills, sweats Respiratory: reports: SOB with excertion. denies: cough, dry, shortness of breath, pleuritic pain, sputum, wheezing Cardiovascular: reports: edema. denies: chest pain, palpitations, orthopnea, paroxysmal noc. dyspnea Gastrointestinal: denies: nausea, vomiting, abdominal pain, diarrhea - Medication Medications: Active Medications Generic Name Dose Route Start Last Admin Trade Name Freq PRN Reason Stop Dose Admin Acetaminophen 650 mg 11/05/19 07:50 11/06/19 08:07 Tylenol PO 650 mg Q6H PRN Administration Mild Pain (1-3) Albuterol Sulfate 1.25 mg 11/05/19 18:30 11/06/19 18:56 Albuterol Sulfate NEB 1.25 mg BID-RT JIN Administration Allopurinol 100 mg 11/05/19 09:00 11/06/19 08:05 Zyloprim PO 100 mg DAILY JIN Administration Aspirin 81 mg 11/05/19 09:00 11/06/19 08:06 Aspirin Chewable PO 81 mg DAILY JIN Administration Atorvastatin Calcium 10 mg 11/05/19 09:00 11/06/19 08:05 Lipitor PO 10 mg DAILY JIN Administration Carvedilol 12.5 mg 11/05/19 09:00 11/06/19 08:05 Coreg PO 12.5 mg BID JIN Administration Clopidogrel Bisulfate 75 mg 11/05/19 09:00 11/06/19 08:05 Plavix PO 75 mg DAILY JIN Administration Finasteride 5 mg 11/05/19 09:00 11/06/19 08:06 Proscar PO 5 mg DAILY JIN Administration Fish Oil 1,000 mg 11/05/19 09:00 11/06/19 08:06 Fish Oil PO 1,000 mg DAILY JIN Administration Furosemide 40 mg 11/05/19 09:00 11/06/19 08:06 Lasix SLOW IVP 40 mg BID JIN Administration Glipizide 5 mg 11/05/19 07:30 11/06/19 08:06 Glucotrol PO 5 mg DAILY-AC JIN Administration Heparin Sodium (Porcine) 5,000 units 11/05/19 09:00 11/06/19 15:29 Heparin SC 5,000 units TID JIN Administration Hydralazine HCl 10 mg 11/05/19 03:11 11/05/19 23:55 Apresoline SLOW IVP 10 mg Q4H PRN Administration SBP > 140 Hydralazine HCl 50 mg 11/05/19 09:00 11/06/19 08:06 Apresoline PO 50 mg BID JIN Administration Insulin Human Lispro 0 units 11/05/19 03:12 11/06/19 12:28 Humalog SC 6 unit .MODERATE SLIDING SC PRN Administration Moderate Correctional Scale Isosorbide Dinitrate 10 mg 11/05/19 09:00 11/06/19 08:06 Isordil PO 10 mg BID JIN Administration Pantoprazole Sodium 40 mg 11/05/19 09:00 11/06/19 08:06 Protonix PO 40 mg DAILY JIN Administration Quetiapine Fumarate 400 mg 11/05/19 21:00 11/05/19 20:29 Seroquel PO 400 mg HS JIN Administration Sevelamer Carbonate 800 mg 11/05/19 08:00 11/06/19 16:35 Renvela PO 800 mg TID-WM JIN Administration Sodium Bicarbonate 650 mg 11/05/19 09:00 11/06/19 08:05 Bicarbonate, Sodium PO 650 mg BID JIN Administration Tamsulosin HCl 0.4 mg 11/05/19 09:00 11/06/19 08:06 Flomax PO 0.4 mg DAILY JIN Administration - Exam General Appearance: NAD, awake alert ENT: normocephalic atraumatic, moist mucosa Neck: no JVD Heart: RRR, no murmur, no gallops, no rubs Respiratory: CTAB, no wheezes, no rales, no ronchi Gastrointestinal: soft, non-tender, non-distended Extremities: 2+ LE edema Psychiatric - other findings: actively exhibiting delusions of grandeur, visual hallucinations Hosp A/P - Plan #HFrEF class III -decompensated due to medication nonadherence; improving, satting and breathing well on room air -patient not able to care for self; cannot address medical issues without addressing psychiatric issues. requires [facility] management in [facility] -continue diuresis and medical management -start entresto -consult EP considering EF 35, class III #CKD -likely chronic cardiorenal; may improve with optimization of cardiac function -strict I/O #Bipolar -manic, delusions of grandeur, hallucinations -pending MHMR #full code pending MHMR evaluation. Medically clear pending evaluation by EP
[2019-11-07] MEDS: HumaLOG 300 UNITS/3 ML VIAL SC PRN (07:18)
[2019-11-07] MEDS: Furosemide 40 MG/4 ML VIAL SLOW IVP SCH ×2 (09:12→21:40)
[2019-11-07] MEDS: hydrALAZINE 25 MG TAB PO SCH ×2 (09:16→21:39)
[2019-11-07] MEDS: Heparin 5,000 UNITS/ML VIAL SC SCH ×3 (09:18→21:40)
[2019-11-07] MEDS: glipiZIDE 5 MG TAB PO SCH (10:11)
[2019-11-07] MEDS: Allopurinol 100 MG TAB PO SCH (10:11)
[2019-11-07] MEDS: Atorvastatin Calcium 10 MG TAB PO SCH (10:11)
[2019-11-07] MEDS: Aspirin Chewable 81 MG TAB PO SCH (10:11)
[2019-11-07] MEDS: Sevelamer Carbonate 800 MG TAB PO SCH ×3 (10:11→16:37)
[2019-11-07] MEDS: Carvedilol 6.25 MG TAB PO SCH ×2 (10:11→21:38)
[2019-11-07] MEDS: Sodium Bicarbonate Tab 325 MG TAB PO SCH ×2 (10:12→21:40)
[2019-11-07] MEDS: Fish Oil 1,000 MG CAP PO SCH (10:12)
[2019-11-07] MEDS: Finasteride 5 MG TAB PO SCH (10:12)
[2019-11-07] MEDS: Isosorbide Dinitrate 20 MG TAB PO SCH ×2 (10:12→21:40)
[2019-11-07] MEDS: Clopidogrel Bisulfate 75 MG TAB PO SCH (10:12)
[2019-11-07] MEDS: Tamsulosin HCl 0.4 MG CAP PO SCH (10:13)
--- NOTE | 2019-11-07 18:27 | PDOC.HOSPP ---
- Subjective Encounter Date: 11/07/19 Encounter Time: 09:00 Subjective: no overnight events. this morning, refusing medication. On attempting to explain and assess decisional capacity, becomes agitated and refuses to answer. Patient's chronic medical issues cannot be medically treated so long as psychosis and delusions remain uncontrolled. Pending [facility] evaluation. - Objective Vital Signs & Weight: Vital Signs (12 hours) Temp Pulse Resp BP Pulse Ox 11/07/19 15:32 98.3 F 85 15 149/71 H 97 11/07/19 11:39 97.7 F 80 20 166/79 H 98 11/07/19 07:39 97.6 F 78 20 164/74 H 98 Weight Weight 217 lb 6.4 oz I&O: 11/06/19 11/07/19 11/08/19 06:59 06:59 06:59 Intake Total 120 650 480 Output Total 550 1200 Balance -430 -550 480 Result Diagrams: 11/05/19 04:10 11/05/19 04:10 Additional Labs: Accuchecks 11/07/19 11/07/19 11/07/19 17:47 11:04 05:39 POC Glucose 129 H 112 H 170 H 11/06/19 20:09 POC Glucose 146 H Hospitalist ROS - Review of Systems Constitutional: denies: fever, chills, sweats, weakness, malaise, other Respiratory: denies: cough, dry, shortness of breath, hemoptysis, SOB with excertion, pleuritic pain, sputum, wheezing, other Cardiovascular: denies: chest pain, palpitations, orthopnea, paroxysmal noc. dyspnea, edema, light headedness, other Gastrointestinal: denies: nausea, vomiting, abdominal pain, diarrhea, constipation, melena, hematochezia, other Genitourinary: denies: dysuria, frequency, incontinence, hematuria, retention, other - Medication Medications: Active Medications Generic Name Dose Route Start Last Admin Trade Name Freq PRN Reason Stop Dose Admin Acetaminophen 650 mg 11/05/19 07:50 11/06/19 23:34 Tylenol PO 650 mg Q6H PRN Administration Mild Pain (1-3) Allopurinol 100 mg 11/05/19 09:00 11/07/19 10:11 Zyloprim PO Not Given DAILY JIN Aspirin 81 mg 11/05/19 09:00 11/07/19 10:11 Aspirin Chewable PO Not Given DAILY [facility] Atorvastatin Calcium 10 mg 11/05/19 09:00 11/07/19 10:11 Lipitor PO Not Given DAILY [facility] Carvedilol 12.5 mg 11/05/19 09:00 11/07/19 10:11 Coreg PO Not Given BID [facility] Clopidogrel Bisulfate 75 mg 11/05/19 09:00 11/07/19 10:12 Plavix PO Not Given DAILY [facility] Finasteride 5 mg 11/05/19 09:00 11/07/19 10:12 Proscar PO Not Given DAILY [facility] Fish Oil 1,000 mg 11/05/19 09:00 11/07/19 10:12 Fish Oil PO Not Given DAILY [facility] Furosemide 40 mg 11/05/19 09:00 11/07/19 09:12 Lasix SLOW IVP 40 mg BID [facility] Administration Glipizide 5 mg 11/05/19 07:30 11/07/19 10:11 Glucotrol PO Not Given DAILY[facility] Heparin Sodium (Porcine) 5,000 units 11/05/19 09:00 11/07/19 16:31 Heparin SC 5,000 units TID [facility] Administration Hydralazine HCl 10 mg 11/05/19 03:11 11/05/19 23:55 Apresoline SLOW IVP 10 mg Q4H PRN Administration SBP > 140 Hydralazine HCl 50 mg 11/05/19 09:00 11/07/19 09:16 Apresoline PO 50 mg BID [facility] Administration Insulin Human Lispro 0 units 11/05/19 03:12 11/07/19 07:18 Humalog SC 2 unit .MODERATE SLIDING SC PRN Administration Moderate Correctional Scale Isosorbide Dinitrate 10 mg 11/05/19 09:00 11/07/19 10:12 Isordil PO Not Given BID [facility] Pantoprazole Sodium 40 mg 11/05/19 09:00 11/07/19 10:12 Protonix PO Not Given DAILY [facility] Quetiapine Fumarate 400 mg 11/05/19 21:00 11/06/19 23:36 Seroquel PO 400 mg HS [facility] Administration Sacubitril/Valsartan 1 tab 11/06/19 21:00 11/07/19 10:12 Entresto 24 Mg-26 Mg Tablet PO Not Given BID [facility] Sevelamer Carbonate 800 mg 11/05/19 08:00 11/07/19 16:37 Renvela PO 800 mg TID- JIN Administration Sodium Bicarbonate 650 mg 11/05/19 09:00 11/07/19 10:12 Bicarbonate, Sodium PO Not Given BID JIN Tamsulosin HCl 0.4 mg 11/05/19 09:00 11/07/19 10:13 Flomax PO Not Given DAILY [facility] Hosp A/P - Plan #HFrEF class III -decompensated due to medication nonadherence; improving, satting and breathing well on room air -patient not able to care for self; cannot address medical issues without addressing psychiatric issues. requires concurrent management in senior living facility -continue diuresis and medical management -start entresto -cancelled EP consult consdiring patient nonadherent and actively psychotic. #CKD -likely chronic cardiorenal; may improve with optimization of cardiac function -strict I/O #Bipolar -manic, delusions of grandeur, hallucinations -pending MHMR #full code pending MHMR evaluation. Medically clear but if continues to refuse treatment expected to medically decompensate
[2019-11-07] MEDS: Acetaminophen 325 MG TAB PO PRN (21:40)
[2019-11-08] MEDS: Acetaminophen 325 MG TAB PO PRN (03:31)
[2019-11-08 07:12] LABS: Hemoglobin 10.1 g/dL (14.0-18.0); Mean Corpuscular HGB CONC 32.1 g/dL (32.0-36.0); Mean Corpuscular Hemoglobin 27.5 pg (27.0-31.0); Mean Corpuscular Volume 85.8 fL (78.0-98.0); Mean Platelet Volume 6.8 fL (7.4-10.4); Platelet Count 391 thou/uL (130-400); RBC Distribution Width 15.7 % (11.5-14.5); Red Blood Cell (RBC) Count 3.67 mill/uL (4.70-6.10); White Blood Cell (WBC) Count 7.7 thou/uL (4.8-10.8)
[2019-11-08 07:30] LABS: Albumin 3.5 g/dL (3.4-4.8); Anion Gap 16 mmol/L (10-20); BUN (Urea Nitrogen) 54 mg/dL (8.4-25.7); BUN/Creatinine Ratio 15.21; Calc. Creatinine Clearance 30 mL/min (70-130); Calcium 9.3 mg/dL (7.8-10.44); Carbon Dioxide 27 mmol/L (23-31); Chloride 100 mmol/L (98-107); Estimated GFR-MDRD 18; Glucose 114 mg/dL (80-115); Magnesium 2.2 mg/dL (1.6-2.6); Phosphorus 4.3 mg/dL (2.3-4.7); Potassium 4.5 mmol/L (3.5-5.1); Sodium 138 mmol/L (136-145)
[2019-11-08] MEDS: Sodium Bicarbonate Tab 325 MG TAB PO SCH (08:35)
[2019-11-08] MEDS: Heparin 5,000 UNITS/ML VIAL SC SCH ×2 (08:35→15:38)
[2019-11-08] MEDS: Furosemide 40 MG/4 ML VIAL SLOW IVP SCH (08:35)
[2019-11-08] MEDS: glipiZIDE 5 MG TAB PO SCH (08:36)
[2019-11-08] MEDS: Tamsulosin HCl 0.4 MG CAP PO SCH (08:36)
[2019-11-08] MEDS: Sevelamer Carbonate 800 MG TAB PO SCH ×2 (08:36→12:21)
[2019-11-08] MEDS: Clopidogrel Bisulfate 75 MG TAB PO SCH (08:37)
[2019-11-08] MEDS: Atorvastatin Calcium 10 MG TAB PO SCH (08:37)
[2019-11-08] MEDS: hydrALAZINE 25 MG TAB PO SCH (08:37)
[2019-11-08] MEDS: Fish Oil 1,000 MG CAP PO SCH (08:37)
[2019-11-08] MEDS: Aspirin Chewable 81 MG TAB PO SCH (08:37)
[2019-11-08] MEDS: Finasteride 5 MG TAB PO SCH (08:38)
[2019-11-08] MEDS: Isosorbide Dinitrate 20 MG TAB PO SCH (08:38)
[2019-11-08] MEDS: Carvedilol 6.25 MG TAB PO SCH (08:38)
[2019-11-08] MEDS: Allopurinol 100 MG TAB PO SCH (08:39)
[2019-11-08 11:31] VITALS: BP 122/61; TEMP 97.5
--- NOTE | 2019-11-09 02:17 | DIS ---
DATE OF ADMISSION: 11/05/2019 DATE OF DISCHARGE: 11/08/2019 HOSPITAL COURSE: Mr. Ahuja is a 64-year-old male with a medical history of bipolar disorder, coronary artery disease, and CHF with reduced ejection fraction, who presented for shortness of breath. He was diagnosed with decompensated heart failure due to medication nonadherence and uncontrolled bipolar disorder and schizophrenia resulting in visual hallucinations and delusions of grandiosity. The patient exhibited psychiatric manifestations throughout his inpatient stay, and at times refused treatment. However, he was diuresed and his heart failure medication was optimized and on the day of discharge, he exhibited cooperation. [facility] was consulted and after assessment of the patient, deemed him not a candidate for inpatient psychiatry. The patient was discharged to [facility]. Prior to discharge, Case management applied for Adult protection Services in order to make the patient's funds available to him. PHYSICAL EXAMINATION: VITAL SIGNS: Blood pressure 122/61, pulse 73, respiratory rate 14, oxygen saturation 97% on room air, and temperature 97.5. GENERAL: Sitting comfortably on the bed, appears disheveled. Poor dentition and writes in his notebook lots of numbers, which he claims he will submit to [employer]. HEENT: Normocephalic and atraumatic. EOMI. PERRL. CARDIAC: Regular rate and rhythm. No murmurs, gallops, or rubs. LUNGS: Clear to auscultation bilaterally. No wheezing, rales, or rhonchi. EXTREMITIES: Edema up to knee level much improved compared to the day of admission. MEDICATION LIST: New medications; 1. Entresto one tablet p.o. b.i.d. 2. Lasix 40 mg p.o. p.r.n. edema. Continued medications; 1. Albuterol. 2. Aspirin. 3. Glipizide. 4. Hydralazine. 5. Sodium bicarbonate. 6. Allopurinol. 7. Coreg. 8. Plavix. 9. Finasteride. 10. Fish oil. 11. Isordil. 12. Omeprazole. 13. Quetiapine. 14. Sevelamer. 15. Tamsulosin. 16. Aripiprazole. Changed medications, atorvastatin was changed from 10 mg to 20 mg daily. Discontinued medications, Lissy. Job ID: [id number]
--- NOTE | 2019-11-09 07:56 | PQF ---
Dear : Mendoza Espinoza Date / Time: 11/09/19 8:55PM Please exercise your independent, professional judgment in responding to the clarification form. Clinical indicators are provided on the bottom of this form for your review Can you please further clarify if NSTEMI is ruled in or ruled out? NSTEMI [ x ] Ruled in diagnosis [ x ] Continue to treat [ ] Resolved [ ] Ruled out diagnosis [ ] Improving [ ] Cannot rule out diagnosis [ ] Other diagnosis please specify [ ] Unable to determine Physician Signature: Date/Time: For continuity of documentation, please document condition throughout progress notes and discharge summary. Thank You. To be completed by CDI/Coding staff for physician review: Present Clinical Indicators - Signs / Symptoms / Labs Results and Location in Medical Record [ x ] NSTEMI ED Provider pg.3 [ x ] EKG shows sinus tachycardia, ST segment normal, T wave normal ED Provider pg.2 [ x ] Troponin 0.610H, 0.691H, 0.519H Laboratory 11/04 [ x ] Patient denies chest pain H and P pg.1 Present Risk Factors Results and Location in Medical Record [ x ] CKD3 H and P pg.1 [ x ] CAD H and P pg.1 [ x ] DM H and P pg.1 [ x ] HTN H and P pg.1 [ x ] CHF H and P pg.1 [ x ] Non compliance with medication H and P pg.1 Present Treatments Results and Location in Medical Record [ x ] Chest X ray 11/04 ED Provider pg.2 [ x ] EKG ED Provider pg.2 [ x ] Troponin monitoring Laboratory [ x ] Nitroglycerin ointment 1 inch Aspirin 81mg PO JUL 06 [ x ] IVF JUL 06 CDS/[employer]arp[employer] 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
== END 2019-11-08 15:57 | disposition home or self-care (01) | DRG 280 ==
LOC: ERS 23:22 → 2NO 11-05 02:14 → OBSVTOIN 11-05 02:14
PROVIDERS: ADMIT Internal Medicine; ATTEND Internal Medicine
DX: I13.0 Hypertensive heart and chronic kidney disease with heart failure and stage 1 through stage 4 chronic kidney disease, or unspecified chronic kidney disease (principal); I50.23 Acute on chronic systolic (congestive) heart failure; I21.4 Non-ST elevation (NSTEMI) myocardial infarction; F31.9 Bipolar disorder, unspecified; N18.3 Chronic kidney disease, stage 3 (moderate); J43.9 Emphysema, unspecified; I25.10 Atherosclerotic heart disease of native coronary artery without angina pectoris; E11.22 Type 2 diabetes mellitus with diabetic chronic kidney disease; F22 Delusional disorders; I25.2 Old myocardial infarction; Z95.5 Presence of coronary angioplasty implant and graft; Z91.14 Patient's other noncompliance with medication regimen; Z79.51 Long term (current) use of inhaled steroids; Z79.84 Long term (current) use of oral hypoglycemic drugs; Z79.82 Long term (current) use of aspirin; Z79.899 Other long term (current) drug therapy
CPT/HCPCS: 36415; 36416; 71045; 80053; 80069; 82553; 83735; 83880; 84484; 85025; 85027; 93005; 94640; 96372; 96374; 96375; 96376; 97139; G0378; J0360; J1644; J1885; J1940

== ENCOUNTER 2019-11-09 21:24 | Observation (INO) | payer MEDICARE, MEDICAID ==
[2019-11-09 22:31] LABS: #Eosinphils 0.4 thou/uL (0.0-0.7); #Lymphocytes 1.7 thou/uL (1.20-3.40); #Monocytes 0.6 thou/uL (0.11-0.59); #Neutrophils 5.1 thou/uL (1.40-6.50); %Basophils 0.3 % (0.0-1.0); %Eosinophils 4.8 % (0.0-10.0); %Lymphocytes 21.8 % (21.0-51.0); %Monocytes 7.1 % (0.0-10.0); %Neutrophils 65.9 % (42.0-75.0); Hemoglobin 8.9 g/dL (14.0-18.0); Mean Corpuscular HGB CONC 32.5 g/dL (32.0-36.0); Mean Corpuscular Hemoglobin 27.4 pg (27.0-31.0); Mean Corpuscular Volume 84.4 fL (78.0-98.0); Mean Platelet Volume 6.7 fL (7.4-10.4); Platelet Count 396 thou/uL (130-400); Red Blood Cell (RBC) Count 3.24 mill/uL (4.70-6.10); White Blood Cell (WBC) Count 7.8 thou/uL (4.8-10.8)
[2019-11-09] MEDS ORDERED: Albuterol 200 PUFF (6.7GM INHALER) ONE (22:31)
[2019-11-09] MEDS ORDERED: Cyclobenzaprine 10 MG TAB ONE (22:31)
--- NOTE | 2019-11-09 22:39 | RAD ---
Portable frontal chest radiograph: 11/09/2019 COMPARISON: 11/04/2019 and 11/17/2013 HISTORY: Chest pain FINDINGS: Stable prominence of the cardiac silhouette. Stable mild increased linear interstitial dens ity with no pneumothorax or pleural fluid. No focal consolidation or alveolar edema is seen. There is a subtle hazy area of increased density within the left base lateral to the left heart borde r which appears stable when compared to a chest x-ray performed 11/17/2013. IMPRESSION: No acute findings.
[2019-11-09 22:51] LABS: ALT (SGPT) 19 U/L (8-55); AST (SGOT) 22 U/L (5-34); Albumin 3.6 g/dL (3.4-4.8); Alkaline Phosphatase 68 U/L (40-110); Anion Gap 13 mmol/L (10-20); BUN (Urea Nitrogen) 51 mg/dL (8.4-25.7); Bilirubin, Total 0.3 mg/dL (0.2-1.2); CK (CPK) 129 U/L (30-200); Calc. Creatinine Clearance 0 mL/min (70-130); Calcium 8.8 mg/dL (7.8-10.44); Carbon Dioxide 27 mmol/L (23-31); Chloride 103 mmol/L (98-107); Estimated GFR-MDRD 17; Globulin 2.6 g/dL (2.4-3.5); Glucose 149 mg/dL (80-115); Potassium 4.4 mmol/L (3.5-5.1); Protein, Total 6.2 g/dL (5.8-8.1); Sodium 139 mmol/L (136-145)
[2019-11-09 23:11] LABS: CKMB 3.7 ng/mL (0-6.6)
[2019-11-10 01:53] LABS: Troponin I 0.202 ng/mL (< 0.028)
[2019-11-10] MEDS ORDERED: HYDROcodone/Acetaminophen 5/325 mg Tablet ONE ×2 (02:21→03:01)
[2019-11-10] MEDS ORDERED: Aspirin Chewable 81 MG TAB ONE ×2 (02:33→03:01)
[2019-11-10] MEDS ORDERED: Furosemide 40 MG/4 ML VIAL ONE (03:01)
[2019-11-10] MEDS ORDERED: HumaLOG 300 UNITS/3 ML VIAL SC PRN (03:19)
[2019-11-10] MEDS ORDERED: Dextrose 50% Abboject 50 ML SYRINGE SLOW IVP PRN (03:19)
[2019-11-10] MEDS ORDERED: Dextrose 5% in Water 1,000 ML IV PRN (03:19)
[2019-11-10] MEDS ORDERED: Methocarbamol 500 MG TAB PO PRN (03:20)
--- NOTE | 2019-11-10 03:46 | HP ---
REASON FOR ADMISSION: Headaches. HISTORY OF PRESENT ILLNESS: This is a 64-year-old male patient who is presenting with complaining of headache, described as neck pain, radiating to the frontal area of his head. The patient was recently admitted to our hospital for shortness of breath and uncontrolled blood pressure in the setting of noncompliance with his medication. He was also diagnosed with congestive heart failure during his stay. He got serial cardiac enzymes done. He was diuresed, the patient is known to have bipolar disorder and it was thought that it was not controlled, so MR were consulted and they saw him and they deemed him not a candidate for inpatient psychiatry. He was discharged to [facility] and prior to his discharge, Case Management applied for Adult Protection Services in order to make the patient's funds available to him. After his discharge, it seems that the patient did not order picker/assembler his prescribed medication and presented to the ER with multiple complaints, including his headaches and chest pain, although he denied that, but he did report shortness of breath. PAST MEDICAL HISTORY: 1. Bipolar disorder. 2. Coronary artery disease. 3. High blood pressure. 4. Chronic kidney disease stage 3. 5. Diabetes type 2. 6. Congestive heart failure. SOCIAL HISTORY: Does not smoke. Does not drink alcohol. FAMILY HISTORY: Negative for heart disease. REVIEW OF SYSTEMS: All systems reviewed and except the above-mentioned shortness of breath and headache, found to be negative. PHYSICAL EXAMINATION: GENERAL: Awake, alert, oriented, does not appear in distress. VITAL SIGNS: His blood pressure is 175/67, his temperature is 97.5, heart rate 73, saturating 97% room air. HEENT: Head is nontraumatic, normocephalic. Pupils equal, reactive. Extraocular ocular movements are intact. Nonicteric sclerae. Well-injected conjunctivae. Oral mucosa normal. Nasal mucosa normal. NECK: Supple. No adenopathy. No murmur. Thyroid is not palpable. Trachea is midline. No supraclavicular adenopathy. HEART: S1, S2 regular. No murmur. No gallops. No friction rubs. No displacement of PMI. LUNGS: Decreased air entry bilaterally. Fine, diffuse end-expiratory wheezing bilaterally. Bowel sounds are positive. Nontender abdomen. No hepatosplenomegaly. No lower extremity edema. No cyanosis. NEUROLOGIC: Cranial nerves 2 through 12 within normal limits. Normal motor function. Normal sensory function. Normal reflexes. LABORATORY DATA: Blood work shows sodium 139, potassium 4.4, BUN 51, creatinine of 3.59. Previous creatinine 3.55. Troponin first set 0.17, the second one 0.202. During his previous admission, his peak troponin was 0.691. BNP 1248, previous BNP 743. Urinalysis does not show any evidence of infection, does show high amount of protein. EKG shows sinus tachycardia, nonspecific intraventricular conduction delay. ASSESSMENT AND PLAN: This is a 64-year-old male patient who is known to have bipolar disorder that is not well controlled. He also is noncompliant with his medical management, is presenting complaining of headache that I can reproduce with palpation and appears to be tension like headache. Also, short shortness of breath and uncontrolled blood pressure, the patient did report chest pain, but to me he did not validate that complaint. 1. Cardiac: The patient will be admitted to telemetry under observation. We will continue cycling his cardiac enzymes. We will diurese him with IV Lasix and he will be on aspirin and we will provide him with hydralazine for blood pressure control. 2. For his headache, we will start him on a muscle relaxant. 3. For his diabetes, he will be on insulin sliding scale and we will restart him on his home regimen. 4. For deep venous thrombosis prophylaxis, he will be on heparin subcutaneously. 5. The patient will be full code. Job ID: [id number]
[2019-11-10] MEDS: hydrALAZINE 20 MG/ML VIAL SLOW IVP PRN ×4 (04:53→20:28)
[2019-11-10 05:04] VITALS: BMI 34.9
[2019-11-10 05:20] LABS: #Basophils 0.1 thou/uL (0.0-0.2); #Eosinphils 0.4 thou/uL (0.0-0.7); #Lymphocytes 1.9 thou/uL (1.20-3.40); #Monocytes 0.7 thou/uL (0.11-0.59); #Neutrophils 6.4 thou/uL (1.40-6.50); %Basophils 0.6 % (0.0-1.0); %Eosinophils 3.9 % (0.0-10.0); %Lymphocytes 19.7 % (21.0-51.0); %Monocytes 7.2 % (0.0-10.0); %Neutrophils 68.6 % (42.0-75.0); Hemoglobin 9.5 g/dL (14.0-18.0); Mean Corpuscular HGB CONC 31.5 g/dL (32.0-36.0); Mean Corpuscular Hemoglobin 26.7 pg (27.0-31.0); Mean Corpuscular Volume 84.7 fL (78.0-98.0); Mean Platelet Volume 7.1 fL (7.4-10.4); Platelet Count 398 thou/uL (130-400); Red Blood Cell (RBC) Count 3.57 mill/uL (4.70-6.10); White Blood Cell (WBC) Count 9.4 thou/uL (4.8-10.8)
[2019-11-10 05:26] LABS: Anion Gap 15 mmol/L (10-20); BUN (Urea Nitrogen) 46 mg/dL (8.4-25.7); Calc. Creatinine Clearance 33 mL/min (70-130); Calcium 9.3 mg/dL (7.8-10.44); Carbon Dioxide 22 mmol/L (23-31); Chloride 103 mmol/L (98-107); Estimated GFR-MDRD 19; Glucose 127 mg/dL (80-115); Potassium 4.6 mmol/L (3.5-5.1); Sodium 135 mmol/L (136-145)
[2019-11-10 05:32] LABS: Troponin I 0.239 ng/mL (< 0.028)
[2019-11-10] MEDS: Furosemide 40 MG/4 ML VIAL SLOW IVP SCH (09:16)
[2019-11-10] MEDS: Aspirin 81 mg Enteric Coated Tablet PO SCH (09:16)
[2019-11-10] MEDS: Heparin 5,000 UNITS/ML VIAL SC SCH ×3 (09:16→20:28)
[2019-11-10] MEDS: Methocarbamol 500 MG TAB PO SCH ×3 (09:16→20:28)
[2019-11-10] MEDS: Acetaminophen 500 MG TAB PO PRN ×2 (10:32→20:27)
--- NOTE | 2019-11-10 18:51 | PDOC.EVN ---
Event Note - Event Note Event Note: inherited patient this morning. Medically at baseline but actively delusional. Requested [facility] to reassess patient for inpatient psych considering repeated admissions due to nonadherence in context of sociopsychiatric issues.
[2019-11-10] MEDS: HYDROcodone/Acetaminophen 5/325 mg Tablet PO PRN (21:20)
[2019-11-11] MEDS: Acetaminophen 500 MG TAB PO PRN ×2 (09:15→16:02)
[2019-11-11] MEDS: Heparin 5,000 UNITS/ML VIAL SC SCH ×3 (09:15→20:54)
[2019-11-11] MEDS: Methocarbamol 500 MG TAB PO SCH ×3 (09:15→20:52)
[2019-11-11] MEDS: Aspirin 81 mg Enteric Coated Tablet PO SCH (09:15)
[2019-11-11] MEDS: Furosemide 40 MG/4 ML VIAL SLOW IVP SCH (09:16)
[2019-11-11] MEDS: hydrALAZINE 20 MG/ML VIAL SLOW IVP PRN (09:20)
[2019-11-11] MEDS ORDERED: Tamsulosin HCl 0.4 MG CAP PO SCH (09:30)
[2019-11-11] MEDS ORDERED: Finasteride 5 MG TAB PO SCH (09:30)
[2019-11-11] MEDS ORDERED: hydrALAZINE 25 MG TAB PO SCH (09:30)
[2019-11-11] MEDS ORDERED: ARIPIPRAZOLE LAUROXIL 882 MG IM SCH (09:30)
[2019-11-11] MEDS ORDERED: Isosorbide Dinitrate 20 MG TAB PO SCH (09:30)
[2019-11-11] MEDS ORDERED: Carvedilol 6.25 MG TAB PO SCH (09:30)
[2019-11-11] MEDS ORDERED: ARIPIPRAZOLE LAUROXIL IM SCH (09:45)
[2019-11-11] MEDS: Sevelamer Carbonate 800 MG TAB PO SCH ×2 (12:17→16:02)
--- NOTE | 2019-11-11 13:41 | PDOC.HOSPP ---
- Subjective Encounter Date: 11/11/19 Encounter Time: 14:00 Subjective: Patient seen and examined for CP. No new CP or SOB. No new complaints. No overnight events - Objective Vital Signs & Weight: Vital Signs (12 hours) Temp Pulse Resp BP BP BP Pulse Ox 11/11/19 12:00 98.5 F 90 16 169/74 H 98 11/11/19 10:53 62 156/68 H 11/11/19 09:20 62 177/74 H 11/11/19 08:00 97.6 F 62 20 186/82 H 100 11/11/19 03:58 97.5 F L 94 18 121/91 H 95 Weight Weight 215 lb 8 oz I&O: 11/10/19 11/11/19 11/12/19 06:59 06:59 06:59 Intake Total 240 2160 Output Total 350 1600 Balance -110 560 Result Diagrams: 11/12/19 04:24 11/12/19 04:24 Additional Labs: Accuchecks 11/11/19 11/11/19 11/10/19 11:05 05:43 20:20 POC Glucose 203 H 134 H 200 H 11/10/19 17:01 POC Glucose 136 H EKG Reviewed by me: Yes (Tele SR) Hospitalist ROS - Review of Systems Respiratory: denies: cough, dry, shortness of breath, hemoptysis, SOB with excertion, pleuritic pain, sputum, wheezing, other Cardiovascular: denies: chest pain, palpitations, orthopnea, paroxysmal noc. dyspnea, edema, light headedness, other - Medication Medications: Active Medications Generic Name Dose Route Start Last Admin Trade Name Freq PRN Reason Stop Dose Admin Acetaminophen 1,000 mg 11/10/19 10:15 11/11/19 09:15 Tylenol PO 1,000 mg Q6H PRN Administration Moderate to Severe Pain (6-10) Hydrocodone Bitart/Acetaminophen 1 tab 11/10/19 10:15 11/10/19 21:20 [place] 5/325 PO 1 tab Q6H PRN Administration Severe Pain (7-10) Aspirin 81 mg 11/10/19 09:00 11/11/19 09:15 Ecotrin PO 81 mg DAILY JIN Administration Furosemide 40 mg 11/10/19 09:00 11/11/19 09:16 Lasix SLOW IVP 40 mg DAILY JIN Administration Heparin Sodium (Porcine) 5,000 units 11/10/19 09:00 11/11/19 09:15 Heparin SC 5,000 units TID JIN Administration Hydralazine HCl 10 mg 11/10/19 03:22 11/11/19 09:20 Apresoline SLOW IVP 10 mg Q4H PRN Administration Hypertension Insulin Human Lispro 0 units 11/10/19 03:19 11/10/19 11:31 Humalog SC 2 unit .MILD SLIDING SCALE PRN Administration Mild Correctional Scale Methocarbamol 500 mg 11/10/19 09:00 11/11/19 09:15 Robaxin PO 500 mg TID JIN Administration Sevelamer Carbonate 800 mg 11/11/19 12:00 11/11/19 12:17 Renvela PO 800 mg TID-WM JIN Administration - Exam General Appearance: NAD Neck: supple, symmetric, no JVD, no thyromegaly Heart: RRR, no gallops, no rubs, normal peripheral pulses Respiratory: no wheezes, no rales, no ronchi, normal chest expansion Gastrointestinal: non-tender, non-distended, normal bowel sounds, no palpable masses Extremities: no cyanosis, no clubbing, no edema Neurological: no new deficit Psychiatric: normal affect, A&O x 3 Hosp A/P - Plan DVT proph w/SCDs CP HTN CKD 3 Chronic systolic/diastolic HF -not on ACEI/ARB/Aldactone due to renal function Obesity BMI 34.3 Anemia due to chronic renal disease PLAN: Cont diuretics cont Coreg Cont ASA Monitor renal function Monitor labs Stable for dc - Await [facility] eval - Pt is not suicidal or homicidal
[2019-11-11] MEDS: hydrALAZINE 25 MG TAB PO SCH (20:52)
[2019-11-11] MEDS: Isosorbide Dinitrate 5 MG TAB PO SCH (20:52)
[2019-11-11] MEDS: Carvedilol 6.25 MG TAB PO SCH (20:53)
[2019-11-11] MEDS: Sodium Bicarbonate Tab 325 MG TAB PO SCH (20:53)
[2019-11-11] MEDS: HYDROcodone/Acetaminophen 5/325 mg Tablet PO PRN (20:54)
[2019-11-11] MEDS ORDERED: Non-Formulary Item 1 EACH (Hydralazine Hcl [Hydralazine Hcl] 50 MG) PO SCH (21:00)
[2019-11-11] MEDS ORDERED: Non-Formulary Item 1 EACH (Carvedilol [Carvedilol] 12.5 MG) PO SCH (21:00)
[2019-11-11] MEDS ORDERED: Non-Formulary Item 1 EACH (Sodium Bicarbonate [Sodium Bicarbonate] 650 MG) PO SCH (21:00)
[2019-11-11] MEDS ORDERED: ISOSORBIDE DINITRATE 10 MG PO SCH (21:00)
[2019-11-11] MEDS ORDERED: QUETIAPINE FUMARATE 400 MG PO SCH (21:00)
[2019-11-12 04:52] LABS: #Eosinphils 0.5 thou/uL (0.0-0.7); #Lymphocytes 1.8 thou/uL (1.20-3.40); #Monocytes 0.7 thou/uL (0.11-0.59); #Neutrophils 3.6 thou/uL (1.40-6.50); %Basophils 0.6 % (0.0-1.0); %Eosinophils 7.1 % (0.0-10.0); %Lymphocytes 27.2 % (21.0-51.0); %Monocytes 10.1 % (0.0-10.0); Hemoglobin 9.4 g/dL (14.0-18.0); Mean Corpuscular HGB CONC 31.5 g/dL (32.0-36.0); Mean Corpuscular Hemoglobin 27.4 pg (27.0-31.0); Mean Corpuscular Volume 87.1 fL (78.0-98.0); Mean Platelet Volume 6.7 fL (7.4-10.4); Platelet Count 378 thou/uL (130-400); Red Blood Cell (RBC) Count 3.43 mill/uL (4.70-6.10); White Blood Cell (WBC) Count 6.5 thou/uL (4.8-10.8)
[2019-11-12 05:11] LABS: Anion Gap 13 mmol/L (10-20); BUN (Urea Nitrogen) 42 mg/dL (8.4-25.7); Calc. Creatinine Clearance 34 mL/min (70-130); Calcium 9.2 mg/dL (7.8-10.44); Carbon Dioxide 27 mmol/L (23-31); Chloride 103 mmol/L (98-107); Estimated GFR-MDRD 20; Glucose 124 mg/dL (80-115); Potassium 4.4 mmol/L (3.5-5.1); Sodium 139 mmol/L (136-145)
[2019-11-12] MEDS ORDERED: glipiZIDE 5 MG TAB PO SCH (07:30)
[2019-11-12 08:09] VITALS: BP 146/68; TEMP 98.1
[2019-11-12] MEDS: Sevelamer Carbonate 800 MG TAB PO SCH (08:10)
[2019-11-12] MEDS: Methocarbamol 500 MG TAB PO SCH (08:10)
[2019-11-12] MEDS: Aspirin 81 mg Enteric Coated Tablet PO SCH (08:10)
[2019-11-12] MEDS: Sodium Bicarbonate Tab 325 MG TAB PO SCH (08:10)
[2019-11-12] MEDS: hydrALAZINE 25 MG TAB PO SCH (08:10)
[2019-11-12] MEDS: Furosemide 40 MG/4 ML VIAL SLOW IVP SCH (08:10)
[2019-11-12] MEDS: Isosorbide Dinitrate 5 MG TAB PO SCH (08:10)
[2019-11-12] MEDS: Carvedilol 6.25 MG TAB PO SCH (08:11)
[2019-11-12] MEDS: Heparin 5,000 UNITS/ML VIAL SC SCH (08:13)
[2019-11-12] MEDS: Acetaminophen 500 MG TAB PO PRN (08:21)
[2019-11-12] MEDS ORDERED: Tamsulosin HCl 0.4 MG CAP PO SCH (09:00)
[2019-11-12] MEDS ORDERED: Finasteride 5 MG TAB PO SCH (09:00)
[2019-11-12] MEDS ORDERED: Allopurinol 100 MG TAB PO SCH (09:00)
[2019-11-12] MEDS ORDERED: Clopidogrel Bisulfate 75 MG TAB PO SCH (09:00)
[2019-11-12] MEDS ORDERED: Fish Oil 1,000 MG CAP PO SCH (09:00)
[2019-11-12] MEDS ORDERED: Atorvastatin Calcium 20 MG TAB PO SCH (09:00)
--- NOTE | 2019-11-12 13:20 | DIS ---
DATE OF ADMISSION: 11/10/2019 DATE OF DISCHARGE: 11/12/2019 DISCHARGE DISPOSITION: The patient signed against medical advice. I was unable to assess the patient on the day of discharge. BRIEF HOSPITAL COURSE: The patient is a 64-year-old male with coronary artery disease, diabetes mellitus type 2, and congestive heart failure, presented to the emergency room with nonspecific symptoms. He was admitted to the hospital with a diagnosis of chest discomfort, rule out acute coronary syndrome. He was also found to have some shortness of breath along with uncontrolled blood pressure. He was started back on his home medications. [facility] was consulted for safe discharge planning, although the patient never was felt to be suicidal or homicidal. He signed against medical advice this morning. FINAL DIAGNOSES: 1. Nonspecific chest discomfort. 2. Hypertension. 3. Chronic kidney disease, stage 3. 4. Chronic systolic/diastolic heart failure. The patient is not on GLADIS inhibitor, ARB, or Aldactone due to renal failure. 5. Obesity with a BMI of 34.3. 6. Anemia due to chronic renal insufficiency. SIGNIFICANT LABORATORY DATA: Creatinine 3.11 with a BUN of 42. Hemoglobin 9.4 with hematocrit 29.9. Job ID: [id number]
== END 2019-11-12 08:44 | disposition left against medical advice (07) ==
LOC: ERS 21:24 → 2NO 11-10 02:55
PROVIDERS: ADMIT Internal Medicine; ATTEND Internal Medicine
DX: R07.89 Other chest pain (principal); I13.0 Hypertensive heart and chronic kidney disease with heart failure and stage 1 through stage 4 chronic kidney disease, or unspecified chronic kidney disease; E11.22 Type 2 diabetes mellitus with diabetic chronic kidney disease; N18.3 Chronic kidney disease, stage 3 (moderate); I50.42 Chronic combined systolic (congestive) and diastolic (congestive) heart failure; D63.1 Anemia in chronic kidney disease; R51 Headache; R06.02 Shortness of breath; F31.9 Bipolar disorder, unspecified; I25.10 Atherosclerotic heart disease of native coronary artery without angina pectoris; I25.2 Old myocardial infarction; J44.9 Chronic obstructive pulmonary disease, unspecified; E66.9 Obesity, unspecified; Z68.34 Body mass index [BMI] 34.0-34.9, adult; Z53.29 Procedure and treatment not carried out because of patient's decision for other reasons; Z91.14 Patient's other noncompliance with medication regimen; Z79.02 Long term (current) use of antithrombotics/antiplatelets; Z79.82 Long term (current) use of aspirin; Z79.84 Long term (current) use of oral hypoglycemic drugs; Z79.899 Other long term (current) drug therapy
CPT/HCPCS: 36415; 36416; 71045; 80048; 80053; 82550; 82553; 83880; 84484; 85025; 93005; 96372; 96374; 96376; G0378; J0360; J1644; J1940

== ENCOUNTER 2019-11-12 09:24 | Observation (INO) | payer MEDICARE, MEDICAID ==
[2019-11-12 10:00] LABS: #Eosinphils 0.5 thou/uL (0.0-0.7); #Lymphocytes 1.5 thou/uL (1.20-3.40); #Monocytes 0.7 thou/uL (0.11-0.59); #Neutrophils 5.9 thou/uL (1.40-6.50); %Basophils 0.3 % (0.0-1.0); %Eosinophils 5.8 % (0.0-10.0); %Lymphocytes 17.1 % (21.0-51.0); %Monocytes 7.8 % (0.0-10.0); %Neutrophils 68.9 % (42.0-75.0); Hemoglobin 9.4 g/dL (14.0-18.0); Mean Corpuscular HGB CONC 31.7 g/dL (32.0-36.0); Mean Corpuscular Hemoglobin 27.5 pg (27.0-31.0); Mean Corpuscular Volume 86.7 fL (78.0-98.0); Mean Platelet Volume 6.7 fL (7.4-10.4); Platelet Count 421 thou/uL (130-400); Red Blood Cell (RBC) Count 3.44 mill/uL (4.70-6.10); White Blood Cell (WBC) Count 8.6 thou/uL (4.8-10.8)
[2019-11-12] MEDS ORDERED: Furosemide 40 MG/4 ML VIAL ONE (10:15)
[2019-11-12 10:22] LABS: ALT (SGPT) 24 U/L (8-55); AST (SGOT) 23 U/L (5-34); Albumin 3.6 g/dL (3.4-4.8); Alkaline Phosphatase 66 U/L (40-110); Anion Gap 13 mmol/L (10-20); BUN (Urea Nitrogen) 43 mg/dL (8.4-25.7); Bilirubin, Total 0.5 mg/dL (0.2-1.2); Calc. Creatinine Clearance 0 mL/min (70-130); Calcium 9.2 mg/dL (7.8-10.44); Carbon Dioxide 29 mmol/L (23-31); Chloride 102 mmol/L (98-107); Estimated GFR-MDRD 19; Globulin 2.7 g/dL (2.4-3.5); Glucose 219 mg/dL (80-115); Protein, Total 6.3 g/dL (5.8-8.1); Sodium 139 mmol/L (136-145)
[2019-11-12] MEDS ORDERED: Albuterol 200 PUFF (6.7GM INHALER) ONE (10:40)
[2019-11-12 10:45] LABS: CKMB 4.5 ng/mL (0-6.6)
--- NOTE | 2019-11-12 12:03 | RAD ---
PORTABLE CHEST 1 VIEW: Date: 11/12/2019 Time: 1030 hours HISTORY: Dyspnea. COMPARISON: 11/09/2019. FINDINGS: The heart size is prominent, but stable. No lobar consolidation, pneumothoraces, or pleural effusions are seen. The subtle hazy area of increased density in the left lung base lateral to the left heart border is stable since the exam of 11/17/2013. IMPRESSION: Stable exam. No acute process. POS: [facility]
[2019-11-12 13:25] LABS: Troponin I 0.178 ng/mL (< 0.028)
--- NOTE | 2019-11-12 14:46 | PDOC.HHP ---
Hospitalist HPI - History of Present Illness Neck pain, headache, shortness of breath History of Present Illness: Mr. Ahuja is a 64 year old male that returned to ER after leaving this morning because he became short of breath while walking away from the hospital. He made it to [address] before he had to stop and was then sent over to the ER by the [facility]. He also reports having headache and neck pain for three days and describes it as excruciating. The pain is from the base of the neck to the occiput and is reproducible with palpation on the left side. The pain started 6 months ago, but has been worsened over the past 3 days. He has full ROM but has pain when turning his neck laterally. The pain is 7/10 and is improved with Tylenol. The patient also reports shortness of breath and some weakness. He denies changes in vision, seizures, urinary incontinence, chest pain, nausea, and vomiting. Hospitalist ROS - Review of Systems Constitutional: denies: fever, chills, sweats, weakness Eyes: denies: pain, vision change ENT: denies: ear pain Respiratory: reports: shortness of breath, SOB with excertion. denies: cough, pleuritic pain, sputum, wheezing Cardiovascular: denies: chest pain, palpitations, orthopnea, edema, light headedness Gastrointestinal: denies: nausea, vomiting, abdominal pain, diarrhea, constipation Genitourinary: denies: dysuria, frequency, incontinence Musculoskeletal: reports: neck pain (extends from the base of the neck to the occiput) Neurological: denies: weakness, numbness, incoordination, change in speech, confusion, seizures, other Hospitalist History - Past Medical History Source: patient Cardiac: reports: CAD, CHF, HTN, [place], Hyperlipidemia Pulmonary: reports: asthma, bronchitis, congestive heart failure, COPD, heart attack, high cholesterol, hypertension [employer]NAGER: reports: no pertinent history Gastrointestinal: reports: GERD Heme/Onc: reports: Other (Anemia from chronic renal insufficiency) Hepatobiliary: reports: no pertinent history Psych: reports: Anxiety, Bipolar, Depression Musculoskeletal: reports: Other (Paraspinal pain extended from base of the neck to the occiput for 6 months but has been worsened for the past three days.) Rheumatologic: reports: no pertinent history Infectious Disease: reports: no pertinent history ENT: reports: no pertinent history Renal/: reports: Chronic renal insuff (Stage 4) Endocrine: reports: Diabetes (Diabetes mellitus type 2) Dermatology: reports: no pertinent history - Past Surgical History Other Surgical History: Stent placements x 2 in August 2019 Testicular surgery but couldn't provide specifics - Family History Family History: reports: no pertinent history - Social History Smoking Status: Former smoker (38 pack year history, quit smoking in 2015) Alcohol: reports: None (quit drinking alcohol in 2013) Drugs: reports: none Living Situation: Homeless (lives at [facility]) Activity level: independent ambulation Other Social History: Unable to hold a steady job or home Lives at [facility] The only family alive is his Aunt Esther - Exam General Appearance: NAD, awake alert Eye: PERRL, anicteric sclera ENT: normocephalic atraumatic, no oropharyngeal lesions ENT - other findings: poor dentition with many missing teeth Neck: no JVD, no lymphadenopathy, no carotid bruit Neck - other findings: stiffness and pain to movement of the neck laterally Heart: RRR, no murmur, no gallops, no rubs, diminshed peripheral pulses Respiratory: CTAB, no wheezes, no rales, no ronchi, no tachypnea Gastrointestinal: soft, non-tender, non-distended, normal bowel sounds, no palpable masses, no bruit, no rigidity Extremities: no cyanosis, no clubbing, 1+ LE edema Extremities - other findings: extending from ankle to mid calves bilaterally Skin: normal turgor Neurological: cranial nerve grossly intact, normal sensation to touch Musculoskeletal: normal tone, normal strength, no muscle wasting Psychiatric: A&O x 3 Psychiatric - other findings: patient was writing excessively throughout the encounter Hospitalist Results - Labs Result Diagrams: 11/12/19 09:50 11/12/19 09:50 Lab results: WBC 8.6 thou/uL (4.8-10.8) 11/12/19 09:50 Hgb 9.4 g/dL (14.0-18.0) L 11/12/19 09:50 Hct 29.8 % (42.0-52.0) L 11/12/19 09:50 MCV 86.7 fL (78.0-98.0) 11/12/19 09:50 Plt Count 421 thou/uL (130-400) H 11/12/19 09:50 Neutrophils % 68.9 % (42.0-75.0) 11/12/19 09:50 Sodium 139 mmol/L (136-145) 11/12/19 09:50 Potassium 5.0 mmol/L (3.5-5.1) 11/12/19 09:50 Chloride 102 mmol/L (98-107) 11/12/19 09:50 Carbon Dioxide 29 mmol/L (23-31) 11/12/19 09:50 BUN 43 mg/dL (8.4-25.7) H 11/12/19 09:50 Creatinine 3.32 mg/dL (0.7-1.3) H 11/12/19 09:50 Glucose 219 mg/dL (80-115) H 11/12/19 09:50 Calcium 9.2 mg/dL (7.8-10.44) 11/12/19 09:50 Total Bilirubin 0.5 mg/dL (0.2-1.2) 11/12/19 09:50 AST 23 U/L (5-34) 11/12/19 09:50 ALT 24 U/L (8-55) 11/12/19 09:50 Alkaline Phosphatase 66 U/L (40-110) 11/12/19 09:50 CK-MB (CK-2) 4.5 ng/mL (0-6.6) 11/12/19 09:50 Troponin I 0.178 ng/mL (< 0.028) H 11/12/19 12:50 B-Natriuretic Peptide 516.4 pg/mL (0-100) H 11/12/19 09:50 Serum Total Protein 6.3 g/dL (5.8-8.1) 11/12/19 09:50 Albumin 3.6 g/dL (3.4-4.8) 11/12/19 09:50 Hospitalist H&P A/P - Problem (1) Acute strain of neck muscle Code(s): S16.1XXA - STRAIN OF MUSCLE, FASCIA AND TENDON AT NECK LEVEL, INIT Status: Chronic (2) CAD (coronary artery disease) Code(s): I25.10 - ATHSCL HEART DISEASE OF [place] CORONARY ARTERY W/O ANG PCTRS Status: Chronic Qualifiers: Coronary Disease-Associated Artery/Lesion type: [place] artery [place] vs. transplanted heart: [place] heart Associated angina: without angina Qualified Code(s): I25.10 - Atherosclerotic heart disease of [place] coronary artery without angina pectoris (3) Bipolar 1 disorder Code(s): F31.9 - BIPOLAR DISORDER, UNSPECIFIED Status: Chronic (4) Compensated cardiac failure Code(s): I50.9 - HEART FAILURE, UNSPECIFIED Status: Chronic (5) Shortness of breath Code(s): R06.02 - SHORTNESS OF BREATH Status: Chronic - Plan Plan: Shortness of breath: Patient was not hypoxic and was breathing heavily. He doesn't seem to be in any acute distress, no edema, no cough, and no wheezing. He also has clear bilateral breath sounds. The patient was diuresed in the ER with 40 mg Lasix and will continue Lasix once a day for diuresis. Neck pain: The pain extends from the base of the neck to the occiput and is paraspinal. It is reproducible with movement. Will give him a lidocaine patch and Robaxin to alleviate pain. Bipolar disorder: Patient has a significant history of bipolar disorder that has not been treated in at least a month and was under [facility] supervision before that. [facility] was contacted to receive his medication list, so that the treatment can be continued. CAD: Patient has a significant history of CAD with two stent placements in August of 2019. Will continue the patient on Aspirin and Plavix. His troponin series was stable and significantly improved from his troponins from 11/05/2019. CHF: Patient has compensated systolic and diastolic heart failure with an EF of 35-40 %. Will place patient on Entresto, Coreg, and Atorvastatin. His BNP has improved from 1248 on 11/09/2019 to 516 today. He has trace ankle edema and clear bilateral breath sounds. Will also continue the Lasix once a day. pt seen and examined and agree with assessment and plan. I spoke with nursing staff to get his meds from [facility]. Pt left today because he wanted to [facility]. pt is currently hypomanic.
[2019-11-12] MEDS ORDERED: Furosemide 40 MG/4 ML VIAL SLOW IVP SCH (16:45)
[2019-11-12] MEDS ORDERED: Furosemide 40 MG TAB PO PRN (16:46)
[2019-11-12] MEDS ORDERED: Cyclobenzaprine 10 MG TAB PO SCH (16:56)
[2019-11-12 17:15] LABS: Troponin I 0.176 ng/mL (< 0.028)
--- NOTE | 2019-11-12 18:43 | RAD ---
CERVICAL SPINE FOUR VIEWS: History: Neck pain. Comparison: 2007 FINDINGS: Lung anterior osteophytes are seen from the cervical vertebrae. These are very prominent at C2, C3, C 4, and C5. There is mild loss of height of these vertebral bodies. The wedging of C4 and C5 were pres ent in 2007. This loss of height appears chronic and these large degenerative osteophytes have progre ssed since 2007. Posterior alignment is preserved. Facet hypertrophy. IMPRESSION: Prominent hypertrophic degenerative changes POS: AGW
[2019-11-12] MEDS: Sevelamer Carbonate 800 MG TAB PO SCH (18:55)
[2019-11-12] MEDS: Acetaminophen 325 MG TAB PO PRN ×2 (18:55→23:39)
[2019-11-12] MEDS: Lidocaine 5% Patch TD SCH (18:55)
[2019-11-12 20:05] VITALS: BMI 34.2
[2019-11-12] MEDS: Sodium Bicarbonate Tab 325 MG TAB PO SCH (20:56)
[2019-11-12] MEDS: Isosorbide Dinitrate 5 MG TAB PO SCH (20:56)
[2019-11-12] MEDS: Atorvastatin Calcium 20 MG TAB PO SCH (20:56)
[2019-11-12] MEDS: Carvedilol 6.25 MG TAB PO SCH (20:57)
[2019-11-12] MEDS: Methocarbamol 500 MG TAB PO SCH (20:57)
[2019-11-12] MEDS: hydrALAZINE 25 MG TAB PO SCH (20:57)
[2019-11-13 04:38] LABS: #Eosinphils 0.5 thou/uL (0.0-0.7); #Lymphocytes 1.8 thou/uL (1.20-3.40); #Monocytes 0.7 thou/uL (0.11-0.59); #Neutrophils 5.1 thou/uL (1.40-6.50); %Basophils 0.5 % (0.0-1.0); %Lymphocytes 22.1 % (21.0-51.0); %Monocytes 9.1 % (0.0-10.0); %Neutrophils 62.4 % (42.0-75.0); Hemoglobin 9.5 g/dL (14.0-18.0); Mean Corpuscular HGB CONC 31.9 g/dL (32.0-36.0); Mean Corpuscular Hemoglobin 27.5 pg (27.0-31.0); Mean Corpuscular Volume 86.2 fL (78.0-98.0); Platelet Count 397 thou/uL (130-400); RBC Distribution Width 15.9 % (11.5-14.5); Red Blood Cell (RBC) Count 3.46 mill/uL (4.70-6.10); White Blood Cell (WBC) Count 8.2 thou/uL (4.8-10.8)
[2019-11-13] MEDS: Lidocaine Patch Removal 1 EACH TOP SCH (04:44)
[2019-11-13 04:57] LABS: Anion Gap 14 mmol/L (10-20); BUN (Urea Nitrogen) 47 mg/dL (8.4-25.7); Calc. Creatinine Clearance 30 mL/min (70-130); Calcium 8.9 mg/dL (7.8-10.44); Carbon Dioxide 25 mmol/L (23-31); Chloride 101 mmol/L (98-107); Estimated GFR-MDRD 18; Glucose 144 mg/dL (80-115); Potassium 4.7 mmol/L (3.5-5.1); Sodium 135 mmol/L (136-145)
[2019-11-13] MEDS ORDERED: Furosemide 40 MG/4 ML VIAL SLOW IVP SCH ×2 (06:00→09:00)
[2019-11-13] MEDS: hydrALAZINE 25 MG TAB PO SCH ×2 (09:50→21:24)
[2019-11-13] MEDS: Isosorbide Dinitrate 5 MG TAB PO SCH ×2 (09:51→21:24)
[2019-11-13] MEDS: Carvedilol 6.25 MG TAB PO SCH ×2 (09:51→21:22)
[2019-11-13] MEDS: Sevelamer Carbonate 800 MG TAB PO SCH ×3 (09:51→17:48)
[2019-11-13] MEDS: Acetaminophen 325 MG TAB PO PRN (09:51)
[2019-11-13] MEDS: Aspirin 81 mg Enteric Coated Tablet PO SCH (09:51)
[2019-11-13] MEDS: Sodium Bicarbonate Tab 325 MG TAB PO SCH ×2 (09:51→21:23)
[2019-11-13] MEDS: Clopidogrel Bisulfate 75 MG TAB PO SCH (09:51)
[2019-11-13] MEDS: Finasteride 5 MG TAB PO SCH (09:52)
[2019-11-13] MEDS: Methocarbamol 500 MG TAB PO SCH ×2 (09:52→21:24)
[2019-11-13] MEDS: Tamsulosin HCl 0.4 MG CAP PO SCH (09:56)
--- NOTE | 2019-11-13 12:45 | PDOC.HOSPP ---
- Subjective Encounter Date: 11/13/19 Encounter Time: 08:30 Subjective: Patient was seated up in his bed writing excessively during his exam today. He complained of neck pain after removing his lidocaine patch, but had no other issues. He is eager to meet with [facility] to receive his medications. - Objective Vital Signs & Weight: Vital Signs (12 hours) Temp Pulse Resp BP BP Pulse Ox 11/13/19 11:34 97.6 F 80 21 H 147/81 H 96 11/13/19 09:47 97.5 F L 82 16 143/63 H 97 11/13/19 03:45 97.6 F 79 16 142/64 H 97 Weight Weight 97.159 kg I&O: 11/12/19 11/13/19 11/14/19 06:59 06:59 06:59 Intake Total 720 Balance 720 Result Diagrams: 11/13/19 04:03 11/13/19 04:03 Additional Labs: Accuchecks 11/12/19 11/12/19 20:58 16:58 POC Glucose 160 H 131 H Hospitalist ROS - Review of Systems Constitutional: denies: fever, chills, sweats, weakness, malaise, other Eyes: denies: pain, vision change, conjunctivae inflammation, eyelid inflammation, redness, other Respiratory: denies: cough, dry, shortness of breath, hemoptysis, SOB with excertion, pleuritic pain, sputum, wheezing, other Cardiovascular: denies: chest pain, palpitations, orthopnea, paroxysmal noc. dyspnea, edema, light headedness, other Gastrointestinal: denies: nausea, vomiting, abdominal pain, diarrhea, constipation, melena (neck pain was relieved with lidocaine patch but returned some time after the patch was taken off), hematochezia, other Musculoskeletal: reports: neck pain Skin: denies: rash, lesions, bran, bruising, other Neurological: denies: weakness, numbness, incoordination, change in speech, confusion, seizures, other - Medication Medications: Active Medications Generic Name Dose Route Start Last Admin Trade Name Freq PRN Reason Stop Dose Admin Acetaminophen 650 mg 11/12/19 16:39 11/13/19 09:51 Tylenol PO 650 mg Q4H PRN Administration Headache/Fever/Mild Pain (1-3) Aspirin 81 mg 11/13/19 09:00 11/13/19 09:51 Ecotrin PO 81 mg DAILY JIN Administration Atorvastatin Calcium 20 mg 11/12/19 21:00 11/12/19 20:56 Lipitor PO 20 mg HS JIN Administration Carvedilol 12.5 mg 11/12/19 21:00 11/13/19 09:51 Coreg PO 12.5 mg BID JIN Administration Clopidogrel Bisulfate 75 mg 11/13/19 09:00 11/13/19 09:51 Plavix PO 75 mg DAILY JIN Administration Finasteride 5 mg 11/13/19 09:00 11/13/19 09:52 Proscar PO 5 mg DAILY JIN Administration Hydralazine HCl 50 mg 11/12/19 21:00 11/13/19 09:50 Apresoline PO 50 mg BID JIN Administration Isosorbide Dinitrate 10 mg 11/12/19 21:00 11/13/19 09:51 Isordil PO 10 mg BID JIN Administration Lidocaine 1 patch 11/12/19 18:00 11/12/19 18:55 Lidoderm 5% Patch TD 1 patch 1800 JIN Administration Methocarbamol 500 mg 11/12/19 21:00 11/13/19 09:52 Robaxin PO 500 mg BID JIN Administration Miscellaneous Medication 1 each 11/13/19 06:00 11/13/19 04:44 Lidocaine Patch Removal TOP 1 each 0600 JIN Administration Pantoprazole Sodium 40 mg 11/13/19 09:00 11/13/19 09:52 Protonix PO 40 mg DAILY JIN Administration Quetiapine Fumarate 400 mg 11/12/19 21:00 11/12/19 20:57 Seroquel PO 400 mg HS JIN Administration Sacubitril/Valsartan 1 tab 11/12/19 21:00 11/13/19 09:51 Entresto 24 Mg-26 Mg Tablet PO 1 tab BID JIN Administration Sevelamer Carbonate 800 mg 11/12/19 17:00 11/13/19 12:15 Renvela PO 800 mg TID-WM JIN Administration Sodium Bicarbonate 650 mg 11/12/19 21:00 11/13/19 09:51 Bicarbonate, Sodium PO 650 mg BID JIN Administration Tamsulosin HCl 0.4 mg 11/13/19 09:00 11/13/19 09:56 Flomax PO 0.4 mg DAILY JIN Administration - Exam General Appearance: awake alert Eye: PERRL, anicteric sclera ENT: normocephalic atraumatic, no oropharyngeal lesions, moist mucosa Neck: no lymphadenopathy Heart: RRR, no murmur, no gallops, no rubs, normal peripheral pulses Respiratory: CTAB, no wheezes, no rales, no ronchi Gastrointestinal: soft, non-tender, non-distended, normal bowel sounds Extremities: no cyanosis, no clubbing, 1+ LE edema (trace bilateral ankle edema) Neurological: cranial nerve grossly intact Musculoskeletal: normal tone, normal strength, no muscle wasting, generalized weakness, diffuse muscle atrophy Hosp A/P (1) Acute strain of neck muscle Code(s): S16.1XXA - STRAIN OF MUSCLE, FASCIA AND TENDON AT NECK LEVEL, INIT Status: Chronic (2) CAD (coronary artery disease) Code(s): I25.10 - ATHSCL HEART DISEASE OF [place] CORONARY ARTERY W/O ANG PCTRS Status: Chronic Qualifiers: Coronary Disease-Associated Artery/Lesion type: [place] artery [place] vs. transplanted heart: [place] heart Associated angina: without angina Qualified Code(s): I25.10 - Atherosclerotic heart disease of [place] coronary artery without angina pectoris (3) Bipolar 1 disorder Code(s): F31.9 - BIPOLAR DISORDER, UNSPECIFIED Status: Chronic (4) Compensated cardiac failure Code(s): I50.9 - HEART FAILURE, UNSPECIFIED Status: Chronic (5) Shortness of breath Code(s): R06.02 - SHORTNESS OF BREATH Status: Chronic - Plan pt seen and examined agree with medical students assessment and examination. spoke with [facility] pt will be transferred to inpatient psy. will stop entresto for now given his dionne on ckd. pt medically stable to be transferred.
[2019-11-13] MEDS: Lidocaine 5% Patch TD SCH (17:48)
[2019-11-13] MEDS: Atorvastatin Calcium 20 MG TAB PO SCH (21:22)
[2019-11-14] MEDS: Acetaminophen 325 MG TAB PO PRN (02:40)
[2019-11-14] MEDS: Lidocaine Patch Removal 1 EACH TOP SCH (06:00)
[2019-11-14 07:46] VITALS: BP 135/63; TEMP 97.5
[2019-11-14] MEDS: Isosorbide Dinitrate 5 MG TAB PO SCH (09:46)
[2019-11-14] MEDS: Sodium Bicarbonate Tab 325 MG TAB PO SCH (09:46)
[2019-11-14] MEDS: Aspirin 81 mg Enteric Coated Tablet PO SCH (09:47)
[2019-11-14] MEDS: Sevelamer Carbonate 800 MG TAB PO SCH (09:47)
[2019-11-14] MEDS: Finasteride 5 MG TAB PO SCH (09:47)
[2019-11-14] MEDS: Carvedilol 6.25 MG TAB PO SCH (09:47)
[2019-11-14] MEDS: Clopidogrel Bisulfate 75 MG TAB PO SCH (09:47)
[2019-11-14] MEDS: hydrALAZINE 25 MG TAB PO SCH (09:47)
[2019-11-14] MEDS: Methocarbamol 500 MG TAB PO SCH (09:54)
[2019-11-14] MEDS: Tamsulosin HCl 0.4 MG CAP PO SCH (09:54)
--- NOTE | 2019-11-15 19:05 | DIS ---
DATE OF ADMISSION: 11/12/2019 DATE OF DISCHARGE: 11/14/2019 DISCHARGE DIAGNOSES: As of the followin. Acute birgit. 2. Shortness of breath, resolved. 3. Acute kidney injury on chronic kidney disease stage 3. 4. Heart failure, compensated. HOSPITAL COURSE: The patient is a 64-year-old male, who was admitted to the hospital, initially signed out AMA, walked a few blocks, had to be brought back in because he felt very tired and short of breath. However, his BNP actually was better than prior to his discharge. His BNP was 516. He did have a mildly elevated creatinine. However, clinically he did not appear to be volume overloaded. ER did give him Lasix. The patient upon examination did not appear to be in any respiratory distress and again as I mentioned, clinically he was not volume overloaded. He was watched overnight. His nephrotoxins were held. The patient's creatinine improved. However, the following day, his creatinine was mildly bumped. At this time, also his Entresto was discontinued and his Lasix was completely discontinued. I spoke with Mental Health. The patient had multiple admissions because of his uncontrolled psychiatric problems. At this time, he was transferred to inpatient psych facility for better control of his psychiatric disorder, which would then make him compliant with his medications, which would then decrease the precipitation of his medical problems. The patient prior to discharge had some neck pain. We did an x-ray which just showed some prominent hypertrophic degenerative changes. However, he was able to move his neck, but does have some pain when he moved his neck to the right side. He was given some Robaxin to help with this. MEDICATIONS: On discharge will be: 1. Allopurinol 100 mg daily. 2. Aspirin 81 mg daily. 3. Atorvastatin 20 mg daily. 4. Carvedilol 12.5 twice a day. 5. Plavix 75 mg daily. 6. Proscar 5 mg daily. 7. Lasix as needed. 8. Isosorbide 10 mg twice a day. 9. Protonix 40 mg daily. 10. Seroquel 400 mg at bedtime, which I am not sure if he is taking. 11. Renvela 800 t.i.d. 12. 650 b.i.d. 13. Tamsulosin 0.4 daily. 14. Glipizide 5 mg daily. 15. Hydralazine 50 mg b.i.d. 16. I did hold his Entresto given his worsening creatinine. I have asked him to follow up with his BMP and possible resume of the Entresto once BMP has improved to his baseline. PHYSICAL EXAMINATION: VITAL SIGNS: His vitals on discharge were 98.4, 90, 16, 97% on room air, 135/63. GENERAL: He is awake, alert, and oriented x3. Does not appear in distress. CV: S1, S2 present. No murmurs, rubs, or gallops. ABDOMEN: Soft, nontender. Bowel sounds are present x2. He will be discharged to inpatient psych facility. Job ID: [id number]
== END 2019-11-14 10:02 | disposition home or self-care (01) ==
LOC: ERS 09:24 → INTOOBSV 11:53 → ERHOLD 11:53 → 2NO 15:36
PROVIDERS: ADMIT Internal Medicine; ATTEND Internal Medicine
DX: F30.9 Manic episode, unspecified (principal); S16.1XXA Strain of muscle, fascia and tendon at neck level, initial encounter; I25.10 Atherosclerotic heart disease of native coronary artery without angina pectoris; I13.0 Hypertensive heart and chronic kidney disease with heart failure and stage 1 through stage 4 chronic kidney disease, or unspecified chronic kidney disease; N18.3 Chronic kidney disease, stage 3 (moderate); N17.9 Acute kidney failure, unspecified; D63.1 Anemia in chronic kidney disease; M25.78 Osteophyte, vertebrae; J44.9 Chronic obstructive pulmonary disease, unspecified; K21.9 Gastro-esophageal reflux disease without esophagitis; F41.9 Anxiety disorder, unspecified; Z79.82 Long term (current) use of aspirin; Z79.899 Other long term (current) drug therapy; Z87.891 Personal history of nicotine dependence; Z95.5 Presence of coronary angioplasty implant and graft; E78.00 Pure hypercholesterolemia, unspecified
CPT/HCPCS: 36415; 36416; 71045; 72040; 80048; 82553; 83880; 84484; 85025; 96374; G0378; J1940